=== PATIENT | female | born 1970 | race Caucasian/White ===

== ENCOUNTER 2019-06-05 17:54 | Observation (INO) | payer SELFPAY ==
[2019-06-05] VITALS (8 sets, daily range): BP systolic 124–133; BP diastolic 76–92; PULSE 81–110; RESP 16–18; TEMP 36.5; O2SAT 94–98; BMI 32.3
[2019-06-05 18:55] LABS: Basophils % 0.3 %; Eosinophils # 0.1 10^3/uL (0.0-0.8); Eosinophils % 0.7 %; Hematocrit 45.5 % (37.0-47.0); Hemoglobin 15.1 g/dL (11.5-15.3); Lymphocytes # 1.5 10^3/uL (0.8-4.8); Lymphocytes % 12.2 %; Mean Corpuscular HGB Conc 33.2 g/dL (30.0-36.0); Mean Corpuscular Hemoglobin 27.3 pg (28.0-34.0); Mean Corpuscular Volume 82.3 fL (81-99); Mean Platelet Volume 8.9 fL (7.4-10.4); Monocytes # 0.5 10^3/uL (0.2-0.9); Monocytes % 3.8 %; Neutrophils % 82.7 %; Nucleated Red Blood Cells % 0 %; Platelet Count 407 10^3/cmm (130-400); Red Blood Count 5.53 10^6/uL (4.1-5.3); Red Cell Distribution Width 12.3 % (12.1-15.1); White Blood Count 12.1 10^3/uL (4.0-10.0)
--- NOTE | 2019-06-05 19:01 | CTR_ITS ---
PROCEDURE INFORMATION: Exam: CT Abdomen And Pelvis Without Contrast Exam date and time: 06/05/2019 7:14 PM Age: 48 years old Clinical indication: Abdominal pain; Flank; Right; Prior surgery; Surgery date: 6+ months; Surgery type: Appy; Additional info: Flank/abdominal pain TECHNIQUE: Imaging protocol: Computed tomography of the abdomen and pelvis without contrast. Total DLP: 1091.95 mGy-cm Radiation optimization: All CT scans at this facility use at least one of these dose optimization techniques: automated exposure control; mA and/or kV adjustment per patient size (includes targeted exams where dose is matched to clinical indication); or iterative reconstruction. COMPARISON: No relevant prior studies available. FINDINGS: Liver: Normal. No mass. Gallbladder and bile ducts: Multiple nonobstructing calculi in the gallbladder. Pancreas: Normal. No ductal dilation. Spleen: Normal. No splenomegaly. Adrenals: Normal. No mass. Kidneys and ureters: Moderate right obstructive uropathy is due to a 6 x 4 x 6 mm calculus in the distal ureter located within 2 cm of the urinary bladder. Several additional right intrarenal calculi up to 5 mm. Single small nonobstructing left intrarenal calculus. Stomach and bowel: Unremarkable. No obstruction. No mucosal thickening. Appendix: No evidence of appendicitis. Intraperitoneal space: Unremarkable. No free air. No significant fluid collection. Vasculature: Unremarkable. No abdominal aortic aneurysm. Lymph nodes: Unremarkable. No enlarged lymph nodes. Bladder: Unremarkable as visualized. Reproductive: Unremarkable as visualized. Bones/joints: Unremarkable. No acute fracture. Soft tissues: Unremarkable. CT/CT kidney stone [id number] IMPRESSION: 1. Right obstructive uropathy due to a 6 mm distal ureteral calculus. 2. Additional bilateral nonobstructing intrarenal stones. 3. Nonobstructing gallstones. Radiation Dose CTDIVOL = (mGy): DLP = 1091.95 (mGy-cm)
[2019-06-05 19:04] LABS: Alanine Aminotransferase 25 U/L (0-33); Albumin Level 4.7 g/dL (3.5-5.2); Alkaline Phosphatase 90 IU/L (35-105); Anion Gap 17.1 (5-19); Aspartate Amino Transferase 26 U/L (0-32); Blood Urea Nitrogen 19 mg/dL (6-20); Calcium 10.6 mg/dL (8.5-10.5); Carbon Dioxide 26 mmol/L (22-29); Chloride 99 mmol/L (98-107); Globulin 3.9 g/dL (1.3-4.6); Glomerular Filtration Rate 58.9 mL/min (90-130); Glucose 179 mg/dL (65-115); Lipase 14 U/L (13-60); Potassium 4.1 mmol/L (3.5-5.1); Sodium 138 mmol/L (136-145); Total Bilirubin 0.5 mg/dL (0.15-1.2); Total Protein 8.6 g/dL (6.6-8.7)
--- NOTE | 2019-06-05 19:06 | ED_ITS ---
Entered by Maye Urbina, acting as scribe for Nisha Andino Tal Jun 05, 2019 17:54 HPI - Abdominal Pain General: Chief Complaint: Abdominal Pain Stated Complaint: abd pain Time Seen by Provider: 06/05/19 18:58 Source: patient Mode of arrival: ambulatory Limitations: no limitations History of Present Illness: HPI narrative: 48 yo f came to the er pov for abd pain. Onset was this morning at 9am. Pt states that she has been having some lower abd pain and some nausea as well. Pt states that she cannot sit or lay down due to the pain. MD elicited complaint: abdominal pain Pertinent past history: none Onset (ago): day(s) (this morning) Pain Consistency: constant Location: RLQ Severity: moderate Quality: sharp Radiation: none Migration to: no migration Exacerbating factors: nothing Relieving factors: nothing Associated Symptoms: Reports nausea; Denies chills, dysuria, fever(s), hematuria and syncope Related Data: Date of Last Menstrual Period: 04/11/19 Patient : No Review of Systems General: Reports: other (negative unless marked) Const: Denies: fever, chills, body aches, fatigue, malaise or diaphoresis Eyes: Denies: change in vision or blurry vision ENMT: Denies: throat pain, painful swallowing, hoarseness, ear pain, ear discharge, Change in hearing or nasal discharge Card: Denies: chest pain, palpitations, irregular heart rhythm, syncope, pre- syncope, shortness of breath on exertion or shortness of breath when lying down Resp: Denies: shortness of breath, productive cough, non-productive cough, wh eezing, coughing up blood or chest congestion GI: Reports: abdominal pain and nausea : Reports: flank pain; Denies: painful urination, urinary frequency, urinary urgency, decreased urine ouput, urinary incontinence or blood in urine Musc: Denies: neck pain, back pain, extremity pain, extremity swelling, joint pain, joint swelling, joint warmth or joint stiffness Skin/Breast: Denies: rash, skin tenderness or yellow skin Neuro: Denies: headache, numbness in extremities, weakness in extremities, c hanges in sensation, lack of coordination, difficulty walking, dizziness, vertigo or confusion Endo: Denies: excessive thirst, tired all the time, cold intolerance, excessive sweating, flushing or hot flashes Emerson/Lymph: Denies: easy bruising, easy bleeding, petechiae or enlarged lymph nodes All/Imm: Denies: hives, throat swelling, tongue swelling, facial swelling or acute wheezing PFSH ED PFSH: Statuses (acute, chronic, etc) shown below reflect problem list status as previously entered and may not be historically accurate Medical History Obesity (Acute) Social History Smoking and tobacco status: former smoker Female Reproductive History: Date of last menstrual period: 04/11/19 Physical Exam Const: COMMON NORMALS: no apparent distress, oriented x3, no limitations, he althy appearing and well nourished EXAM LIMITATIONS: no altered mental status GENERAL APPEARANCE: cooperative, well kempt and well developed ORIENTATION/CONSCIOUSNESS: Yes awake HENMT: COMMON NORMALS: normocephalic, head/scalp atraumatic, hearing grossly normal bilaterally, external ears normal, EAC's normal, external nose normal and moist oral mucous membranes HEAD & SCALP: normal to inspection, normocephalic and atraumatic FACE & SINUS: normal facial exam and face symmetric NOSE: external nose normal and nares normal EXTERNAL EAR: Yes external ears normal EXTERNAL AUDITORY CANAL: EAC's normal MOUTH: oral and palatal mucosa normal and tongue normal Eye: COMMON NORMALS: PERRL, EOMs intact bilaterally, conjunctivae normal and no scleral icterus GENERAL EYE: normal appearance of both eyes and normal light reflex CONJUNCTIVA: Yes conjunctivae normal SCLERA: sclerae normal CORNEA: Yes corneas normal PUPIL: Yes PERRL DIRECT OPHTHALMOSCOPY: Yes normal light reflex Neck/C-Spine: COMMON NORMALS: full ROM, no lymphadenopathy, supple, no meningeal signs and no JVD GENERAL: Yes normal visual inspection and Yes trachea midline CERVICAL SPINE: Yes cervical ROM normal Chest: COMMONS NORMALS: inspection of chest normal and palpation of chest normal Resp: COMMON NORMALS: normal respiratory effort, no retractions, no use of accessory muscles and clear to auscultation bilaterally EFFORT & INSPECTION: Yes able to speak in complete sentences AUSCULTATION: clear to auscultation bilaterally Cardio: COMMON NORMALS: no JVD, regular rate, regular rhythm, S1 normal heart sound, S2 normal heart sound, no gallops, no clicks, no murmurs and no rub JUGULAR VENOUS DISTENTION: no JVD RATE: regular rate RHYTHM: regular rhythm HEART SOUNDS: S1 normal and S2 normal GI: COMMON NORMALS: soft to palpation, non-tender, no hepatosplenomegaly and no masses INSPECTION: Yes normal to inspection PALPATION: Yes soft and Yes no hepatosplenomegaly : BLADDER/KIDNEY EXAM: Yes CVA tenderness on the right Back/Pelvis: COMMON NORMALS: thoracic and lumbar spine normal to inspection, no thoracic nor lumbar tenderness and thoraco-lumbar ROM normal GENERAL BACK: Yes CVA tenderness Extremity: COMMON NORMALS: normal to inspection, full ROM, normal capillary refill, no joint enlargement, no clubbing, cyanosis or edema and no calf tenderness Neuro: COMMON NORMALS: oriented x3, CN's II-XII intact bilaterally, moves all extremities, no focal motor deficits and no sensory deficits noted MENINGEAL SIGNS: Yes no meningeal signs Psych: COMMON NORMALS: mental status grossly normal, thought process normal, cooperative, affect normal, speech normal and activity/motor behavior normal APPEARANCE: Yes well kempt SPEECH: Yes normal speech THOUGHT PROCESS: normal thought process Skin: COMMON NORMALS: no rashes or lesions noted, skin turgor normal, no j aundice, no petechiae and no mottling GENERAL SKIN EXAM: no rashes or lesions noted and turgor normal Course Vital Signs: Vital signs: Vital Signs Temperature 97.7 F 06/05/19 18:25 Pulse Rate 110 H 06/05/19 18:25 Respiratory Rate 18 06/05/19 19:48 Blood Pressure 133/92 06/05/19 18:25 Pulse Oximetry 98 06/05/19 19:48 MDM - Abdominal Pain MDM Narrative: Medical decision making narrative: Kathi is a 48-year-old female who comes in with right flank pain. He is not had any fever, diarrhea, or vomiting. CT scan shows no sign of AAA but does show a large renal stone. The patient's been given multiple doses of pain medication but still has pain. She feels very nauseated as well. Do not believe she is going to be able to go home with this. I reviewed the case in full with Dr. Milner and he is agreeable to admission for intractable pain. Lab Data: Labs: Lab Results 06/05/19 06/05/19 06/05/19 Range/Units 18:40 18:40 18:50 WBC 12.1 H (4.0-10.0) 10^3/ uL RBC 5.53 H (4.1-5.3) 10^6/u L Hgb 15.1 (11.5-15.3) g/dL Hct 45.5 (37.0-47.0) % MCV 82.3 (81-99) fL MCH 27.3 L (28.0-34.0) pg MCHC 33.2 (30.0-36.0) g/dL RDW 12.3 (12.1-15.1) % Plt Count 407 H (130-400) 10^3/c mm MPV 8.9 (7.4-10.4) fL Neut % (Auto) 82.7 % Lymph % (Auto) 12.2 % Billings % (Auto) 3.8 % Eos % (Auto) 0.7 % Baso % (Auto) 0.3 % Neut # (Auto) 10.0 H (1.8-7.7) 10^3/u L Lymph # (Auto) 1.5 (0.8-4.8) 10^3/u L Billings # (Auto) 0.5 (0.2-0.9) 10^3/u L Eos # (Auto) 0.1 (0.0-0.8) 10^3/u L Baso # (Auto) 0.0 (0.0-0.1) 10^3/u L Nucleated RBC % (a uto) 0 % Nucleated RBCs # 0.0 /100WBC Sodium 138 (136-145) mmol/L Potassium 4.1 (3.5-5.1) mmol/L Chloride 99 (98-107) mmol/L Carbon Dioxide 26 (22-29) mmol/L Anion Gap 17.1 (5-19) BUN 19 (6-20) mg/dL Creatinine 1.0 H (0.5-0.9) mg/dL GFR Calculation 58.9 L (90-130) mL/min Glucose 179 H (65-115) mg/dL Calcium 10.6 H (8.5-10.5) mg/dL Total Bilirubin 0.5 (0.15-1.2) mg/dL AST 26 (0-32) U/L ALT 25 (0-33) U/L Alkaline Phosphata se 90 (35-105) IU/L Total Protein 8.6 (6.6-8.7) g/dL Albumin 4.7 (3.5-5.2) g/dL Globulin 3.9 (1.3-4.6) g/dL Lipase 14 (13-60) U/L Urine Color Yellow (Yellow) Urine Appearance Hazy A (CLEAR) Urine pH 7 (5-7) Ur Specific Gravit y 1.010 (1.005-1.030) Urine Protein Neg (Negative) Urine Glucose (UA) Norm (Normal) Urine Ketones 1+ H (Negative) Urine Occult Blood 3+ H (Negative) Urine Nitrate Negative (Negative) Urine Bilirubin Neg (NEGATIVE) Urine Urobilinogen Norm (Negative) mg/dL Ur Leukocyte Medina ase Negative (Negative) Urine RBC >100 H (0-2) /hpf Urine WBC 0-4 H (0-5) /hpf Ur Squamous Epith Cells 0-4 H (0-5) Urine Bacteria 1+ H (NONE) Urine Mucus 1+ Imaging Data ^: CT Abd/Pel: Radiologist's impression: [place] [address] CT Scan Report Signed Patient: Catrina Mcmanus Unit #: [id number] : 1970 Age/Sex: 48 / F ADM Date: 06/05/19 Loc: ER Room/Bed: Attending Dr: Ordering Provider/Ordering MD: Nisha Andino DO Date of Service: 06/05/19 Procedure(s): CT kidney stone [id number] Accession Number(s): [id number] Report Number: [id number] PROCEDURE INFORMATION: Exam: CT Abdomen And Pelvis Without Contrast Exam date and time: 06/05/2019 7:14 PM Age: 48 years old Clinical indication: Abdominal pain; Flank; Right; Prior surgery; Surgery date: 6+ months; Surgery type: Appy; Additional info: Flank/abdominal pain TECHNIQUE: Imaging protocol: Computed tomography of the abdomen and pelvis without contrast. Total DLP: 1091.95 mGy-cm Radiation optimization: All CT scans at this facility use at least one of these dose optimization techniques: automated exposure control; mA and/or kV adjustment per patient size (includes targeted exams where dose is matched to clinical indication); or iterative reconstruction. COMPARISON: No relevant prior studies available. FINDINGS: Liver: Normal. No mass. Gallbladder and bile ducts: Multiple nonobstructing calculi in the gallbladder. Pancreas: Normal. No ductal dilation. Spleen: Normal. No splenomegaly. Adrenals: Normal. No mass. Kidneys and ureters: Moderate right obstructive uropathy is due to a 6 x 4 x 6 mm calculus in the distal ureter located within 2 cm of the urinary bladder. Several additional right intrarenal calculi up to 5 mm. Single small nonobstructing left intrarenal calculus. Stomach and bowel: Unremarkable. No obstruction. No mucosal thickening. Appendix: No evidence of appendicitis. Intraperitoneal space: Unremarkable. No free air. No significant fluid collection. Vasculature: Unremarkable. No abdominal aortic aneurysm. Lymph nodes: Unremarkable. No enlarged lymph nodes. Bladder: Unremarkable as visualized. Reproductive: Unremarkable as visualized. Bones/joints: Unremarkable. No acute fracture. Soft tissues: Unremarkable. CT/CT kidney stone [id number] IMPRESSION: 1. Right obstructive uropathy due to a 6 mm distal ureteral calculus. 2. Additional bilateral nonobstructing intrarenal stones. 3. Nonobstructing gallstones. 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
[2019-06-05] MEDS: sodium chloride 0.9% 1,000 ML 100 ML IV ×2 (19:08)
[2019-06-05] MEDS: ondansetron 2 mg/ML SDV 2 mL 4 MG IVP ×2 (19:12→19:34)
[2019-06-05] MEDS: morphine 4 mg/mL SDV 1 mL IVP ×2 (19:13→19:37)
[2019-06-05 19:28] LABS: Add Urine Microscopic? YES; Bilirubin Urine Neg (NEGATIVE); Blood Urine 3+ (Negative); Glucose Urine UA Norm (Normal); Ketones Urine 1+ (Negative); Leukocyte Esterase Urine Negative (Negative); Nitrate Urine Negative (Negative); Protein Urine Neg (Negative); Urine Appearance Hazy (CLEAR); Urine Color Yellow (Yellow); Urobilinogen Urine Norm (Negative); pH Urine 7 (5-7)
[2019-06-05 19:39] LABS: Add Urine Culture? Yes; Bacteria Urine 1+; Mucus Urine 1+; RBC Urine >100 /hpf (0-2); Squamous Epithelial Cell Urine 0-4 (0-5); WBC Urine 0-4 /hpf (0-5)
[2019-06-05] MEDS: HYDROmorphone 1 mg/mL INJ 1 mL IVP (19:48)
[2019-06-05] MEDS: ketorolac 30 mg/mL INJ 15 MG IVP (20:57)
[2019-06-06] VITALS (14 sets, daily range): BP systolic 98–130; BP diastolic 49–79; PULSE 60–81; RESP 12–20; TEMP 35.9–36.7; O2SAT 96–100
--- NOTE | 2019-06-06 | XR_ITS ---
WS: [id number] KUB, 2 C-arm fluoroscopy views in the OR, 06/06/2019 Clinical Data: OR PICS Comparison: KUB, 06/06/2019 Findings: A ureteral catheter has been placed and the proximal portion is curled and probably within the right renal pelvis. XR/XR KUB [id number] Impression: Placement of right ureteral catheter with its proximal portion in the right abelino al pelvis.
--- NOTE | 2019-06-06 | SCC_ITS ---
Procedure Done: Cystoscopy, RIGHT: Retrograde, ureteroscopy, laser, stent 29.4 seconds of fluoroscopic guidance, for a cumulative dose of 6.46 mGy, was provided to Dr. Milner by the radiology department. C-arm images of the abdomen were saved for the patient's permanent record. [facility]
[2019-06-06] MEDS: ondansetron 2 mg/ML SDV 2 mL 4 MG IVP ×4 (01:46→18:48)
[2019-06-06] MEDS: morphine 4 mg/mL SDV 1 mL IVP ×3 (01:47→14:00)
[2019-06-06] MEDS: ketorolac 30 mg/mL INJ 15 MG IVP ×3 (03:35→18:27)
--- NOTE | 2019-06-06 06:00 | XR_ITS ---
WS: [id number] KUB, 06/06/2019 Clinical Data: URETEROLITH ASIS Comparison: CT abdomen and pelvis, 06/05/2019 Findings: There is a calcification which probably represents a distal right ureteral stone on the right side of the true pelvis. There are multiple small calcifications overlying the right kidney. The left kidney s obscured by overlying bowel gas. There are phleboliths also in the true pelvis. XR/XR KUB [id number] Impression: 1. Probable distal right ureteral calculus unchanged. 2. Multiple calcifications overlying the right kidney.
--- NOTE | 2019-06-06 06:05 | PM.HP ---
Providers/Chief Complaint Admitting Physician: Oscar Milner MD Primary Care Provider: Robert Colorado MD Chief Complaint: URETEROLITHASIS, INTRACTABLE PAIN History of Present Illness Catrina Mcmanus is a 48 year old female who presented to ED yesterday with abrupt onset of Right flank to RLQ severe, colicky pain, nausea and vomitting that began that morning. No fever, chills, change in bowel habits. Workup: UA: microhematuria, no infection Lab: Cr: 1.0, WBC: 12.x CT: RIGHT hydroureteronephrosis secondary to 6mm stone 2cm above UVJ. BILATERAL RENAL CALCULI also. Unsuccessful in achieving pain control adequate for discharge home and therefore admitted for symptom control and further treatment as indicated. Additional information: She has had intermittent right flank pain when she drinks soda over the last many months. I expect that that probably supports the chronic obstructive changes. Essentially she is failed a conservative therapy prior to presenting with acute renal colic. No family history of stone After detailed discussion of her findings benefits risks of approaches including conservative outpatient versus inpatient management, surgical intervention with endoscopy recommended based on the size of the stone we chose to proceed today with cystoscopy, RIGHT: Ureteroscopy, laser, stent. We will place her on the schedule as time is available this afternoon. Benefits risk potential complications alternatives, and then 5 to 10% for inability to access the stone safely with the scope leading to a 2 staged approach with stenting first followed by ureteroscopy laser lithotripsy after passive dilation as well as a less than 1% chance of failure to bypass the stone entirely requiring interventional radiology percutaneous nephrostomy tube placement was reviewed. Informed consent was obtained. Review of Systems Const: Denies: fever or chills Eyes: Denies: change in vision ENMT: Denies: painful swallowing or hoarseness Card: Denies: chest pain or palpitations Resp: Denies: shortness of breath, productive cough or wheezing GI: Reports: abdominal pain and nausea : Reports: flank pain, difficulty urinating and urinary urgency Musc: Denies: joint swelling or muscle weakness Skin/Breast: Denies: rash or redness Neuro: Reports: headache and numbness in extremities Psych: Denies: anxiety or depression Endo: Denies: hot flashes Emerson/Lymph: Denies: easy bruising or easy bleeding All/Imm: Denies: hives Medications/Allergies Allergies Allergy/AdvReac Type Severity Reaction Status Date / Time Penicillins Allergy ALGY-Hives Verified 06/05/19 18:31 PFSH Acute PFSH: Statuses (acute, chronic, etc) shown below reflect problem list status as previously entered and may not be historically accurate Medical History Bilateral renal stones (Acute) Obesity (Acute) Surgical History Hx of removal of ovary (Acute) Social History (Updated 06/06/19 @ 08:03 by Oscar Milner MD) Smoking and tobacco status: former smoker Marital status: Female Reproductive History: Date of last menstrual period: 04/11/19 Vitals/I&O/Wt Last Vital Signs Temp 97.6 F 06/06/19 00:00 Pulse 60 06/06/19 00:00 Resp 17 06/06/19 01:47 BP 125/78 06/06/19 00:00 Pulse Ox 96 06/06/19 00:00 06/05/19 06/05/19 06/06/19 14:59 22:59 06:59 Intake Total 1220 / 1220 Output Total 50 / 50 Balance 1170 / 1170 Weight last 48 hrs Weight 171 lb Physical Exam Const: COMMON NORMALS: no apparent distress, alert and well nourished GENERAL APPEARANCE: well kempt and well developed ORIENTATION/CONSCIOUSNESS: not confused HENMT: COMMON NORMALS: normocephalic and head/scalp atraumatic HEAD & SCALP: normocephalic and atraumatic Eye: COMMON NORMALS: conjunctivae normal and no scleral icterus CONJUNCTIVA: Yes conjunctivae normal Neck/C-Spine: COMMON NORMALS: full ROM GENERAL: Yes normal visual inspection Lymph: LYMPHATIC: no lymphadenopathy noted and no lymphedema noted Resp: COMMON NORMALS: normal respiratory effort EFFORT & INSPECTION: No labored and No actively coughing AUSCULTATION: clear to auscultation bilaterally Cardio: COMMON NORMALS: regular rate, regular rhythm and no murmurs RATE: regular rate RHYTHM: regular rhythm BRUITS: no carotid bruits Extremity: COMMON NORMALS: no clubbing, cyanosis or edema Neuro: COMMON NORMALS: no focal motor deficits SENSORIUM/ORIENTATION: Yes alert Psych: COMMON NORMALS: mental status grossly normal APPEARANCE: Yes grossly normal and Yes well kempt ATTITUDE: Yes calm and Yes engaged Skin: COMMON NORMALS: no rashes or lesions noted and no jaundice GENERAL SKIN EXAM: no rashes or lesions noted Data : 06/05/19 18:40 06/05/19 18:40 A&P Assessment and plan (1) Intractable pain: Secondary to large right distal ureteral stone with evidence of chronic obstruction. Status: Acute Code(s): R52 - Pain, unspecified (2) Ureterolithiasis: 6+ millimeters right distal ureteral stone with chronic obstruction. Refractory pain Status: Acute Code(s): N20.1 - Calculus of ureter (3) Bilateral renal stones: Multi stone former. Unaware of this prior to admission June 2023 symptomatic right distal ureteral stone Status: Acute Code(s): N20.0 - Calculus of kidney Attestations Medical Necessity Statement*: Could not control pain adequately in order to continue outpatient management. Stone is been obstructing for extended period time based on the degree of hydroureteronephrosis. We will take her to surgery this afternoon to treat the stone. 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
[2019-06-06] MEDS: sodium chloride 0.9% 1,000 ML 100 ML IV (08:08)
[2019-06-06 09:31] LABS: Basophils % 0.3 %; Eosinophils # 0.2 10^3/uL (0.0-0.8); Eosinophils % 1.6 %; Hematocrit 38.2 % (37.0-47.0); Hemoglobin 12.7 g/dL (11.5-15.3); Lymphocytes # 2.2 10^3/uL (0.8-4.8); Lymphocytes % 22.4 %; Mean Corpuscular HGB Conc 33.2 g/dL (30.0-36.0); Mean Corpuscular Hemoglobin 28.3 pg (28.0-34.0); Mean Corpuscular Volume 85.3 fL (81-99); Mean Platelet Volume 9.2 fL (7.4-10.4); Monocytes # 0.6 10^3/uL (0.2-0.9); Monocytes % 6.4 %; Neutrophils # 6.8 10^3/uL (1.8-7.7); Nucleated Red Blood Cells % 0 %; Platelet Count 284 10^3/cmm (130-400); Red Blood Count 4.48 10^6/uL (4.1-5.3); Red Cell Distribution Width 12.4 % (12.1-15.1); White Blood Count 9.8 10^3/uL (4.0-10.0)
[2019-06-06 09:54] LABS: Anion Gap 13.9 (5-19); Blood Urea Nitrogen 17 mg/dL (6-20); Calcium 9.4 mg/dL (8.5-10.5); Carbon Dioxide 22 mmol/L (22-29); Chloride 106 mmol/L (98-107); Glomerular Filtration Rate 66.5 mL/min (90-130); Glucose 101 mg/dL (65-115); Osmolality Calculated 283 mOsm/kg (285-295); Potassium 3.9 mmol/L (3.5-5.1); Sodium 138 mmol/L (136-145)
--- NOTE | 2019-06-06 12:10 | PC.CHAP ---
Pastoral Care Encounter/Spiritual Assessment Type of Contact [x] Declined order analyst visit [] Patient/Family/Request visit [] Outpatient visit [] Follow-up visit [] Physician referral [] Code/Alert [] Routine visit [] Staff referral [] Actively dying [] Patient sleeping [] Family support [] [] Out of room [] Palliative care [] [] Receiving care in room [] Pre-surgical visit [] Trauma [] Long length of stay [] ICU visit [] Other: Relational/Emotional Strength [] Patient feels connected with others/family/visitors/staff [] Distress [] Loneliness/isolation [] Abandonment Spirituality of Patient [] Person of Sujata [] Attends Advent of their Sujata [] Believes in Prayer [] Reads Bible or Jainism materials [] There are Spiritual issues to be addressed [employer] Interventions [] Prayer [] Active listening [] Non-anxious presence [] Spiritual/emotional support [] Crisis/trauma care [] Spiritual counseling [] Bereavement support [] Provided bereavement packet [] Provided Bible/devotional materials [] Provided toy/stuffed animal, coloring book to patient or family member [] Provided Communion [] Anointing/[place] [] Salvation [] Completed spiritual assessment [] Other: Impact on Illness or Injury [] Angry [] Fearful [] Anxious [] Often cries [] Exhaustion [] Unable to work [] Unable to attend sikhism [] Unable to walk/stand [] Unable to read [] Unable to drive [] Unable to eat/drink [] Unable to sleep [] Unable to be with family [] Patient intubated [] Other: Summary Time spent with patient
--- NOTE | 2019-06-06 14:48 | ANES.PREANE2 ---
Pre-Anesthetic Assessment Pre-Anesthetic Assessment: Height/Weight: Height 1.55 m Weight 77.564 kg Temp Pulse Resp BP Pulse Ox 98.1 F 69 18 98/60 98 06/06/19 10:58 06/06/19 10:58 06/06/19 14:00 06/06/19 10:58 06/06/19 10:58 Proposed Procedure: Operation Date: 06/06/19 15:15 Proposed Procedures p Cystoscopy(Not Applicable) - Oscar Milner MD s Laser Lithotripsy(Right) - Oscar Milner MD s Retrograde Pyelogram(Right) - Oscar Milner MD s Flexible Ureteroscopy(Right) - Oscar Milner MD s Ureteral Stent Placement(Right) - Oscar Milner MD Familial anesthetic complications: Difficult epidural - legs seize up Was Beta Ronaldo taken within 24 hours: N/A Last intake: Intake Last Liquid Date 06/06/19 Last Liquid Time 08:30 Last Solid Date 06/05/19 Last Solid Time 15:00 Social: Social History: No alcohol and No tobacco Exam: Pre-Anes Outpt Exam: alert, oriented x 3, clear to auscultation bilaterally and regular rate & rhythm Airway: Cervical ROM: WNL MP: 2 Dentition: Full Pulmonary: Pulmonary: None reported CV/HEM: CV/HEM: None reported : : None reported Hepatic: Hepatic: None reported GI: GI: None reported Metabolic: Metabolic: None reported Musc/skel: Musc/skel: None reported Neuropsych: Neuropsych: None reported Anesthetic Plan: ASA status: 2 Anesthesia: General Meds/Allergies Current Medications: Current Medications Generic Name Dose Route Start Last Admin Trade Name Yoanq PRN Reason Stop Dose Admin Sodium Chloride 1,000 mls @ 100 m ls/hr 06/05/19 23:05 06/06/19 08:08 Sodium Chloride 0.9% IV 100 mls/hr .Q10H RUDDY Administration Ketorolac Trometha mine 15 mg 06/05/19 20:22 06/06/19 09:39 Toradol IVP 06/10/19 20:21 15 mg Q6H PRN Administration MODERATE PAIN Morphine Sulfate 4 mg 06/05/19 19:22 06/06/19 14:00 Morphine IVP 4 mg ONCE PRN Administration SEVERE PAIN Ondansetron HCl 4 mg 06/05/19 23:05 06/06/19 14:01 Zofran IVP 4 mg Q6H PRN Administration NAUSEA AND VOMITI NG PFSH Anesthesia PFSH: Medical History Bilateral renal stones (Acute) Obesity (Acute) Surgical History Hx of removal of ovary (Acute) Social History (Updated 06/06/19 @ 08:03 by Oscar Milner MD) Smoking and tobacco status: former smoker Marital status: Female Reproductive History: Date of last menstrual period: 04/11/19 Data Anesthesia CBC & Chem 7: 06/06/19 08:54 06/06/19 08:54 Other Labs: Laboratory Results - last 48 hr 06/05/19 06/05/19 06/05/19 18:40 18:40 18:50 WBC 12.1 H RBC 5.53 H Hgb 15.1 Hct 45.5 MCV 82.3 MCH 27.3 L MCHC 33.2 RDW 12.3 Plt Count 407 H MPV 8.9 Neut % (Auto) 82.7 Lymph % (Auto) 12.2 [place] % (Auto) 3.8 Eos % (Auto) 0.7 Baso % (Auto) 0.3 Neut # (Auto) 10.0 H Lymph # (Auto) 1.5 [place] # (Auto) 0.5 Eos # (Auto) 0.1 Baso # (Auto) 0.0 Nucleated RBC % (auto) 0 Nucleated RBCs # 0.0 Sodium 138 Potassium 4.1 Chloride 99 Carbon Dioxide 26 Anion Gap 17.1 BUN 19 Creatinine 1.0 H GFR Calculation 58.9 L Glucose 179 H Calculated Osmolality Calcium 10.6 H Total Bilirubin 0.5 AST 26 ALT 25 Alkaline Phosphatase 90 Total Protein 8.6 Albumin 4.7 Globulin 3.9 Lipase 14 Urine Color Yellow Urine Appearance Hazy A Urine pH 7 Ur Specific Pride 1.010 Urine Protein Neg Urine Glucose (UA) Norm Urine Ketones 1+ H Urine Occult Blood 3+ H Urine Nitrate Negative Urine Bilirubin Neg Urine Urobilinogen Norm Ur Leukocyte Esterase Negative Urine RBC >100 H Urine WBC 0-4 H Ur Squamous Epith Cells 0-4 H Urine Bacteria 1+ H Urine Mucus 1+ 06/06/19 06/06/19 08:54 08:54 WBC 9.8 RBC 4.48 Hgb 12.7 Hct 38.2 MCV 85.3 MCH 28.3 MCHC 33.2 RDW 12.4 Plt Count 284 MPV 9.2 Neut % (Auto) 69.0 Lymph % (Auto) 22.4 [place] % (Auto) 6.4 Eos % (Auto) 1.6 Baso % (Auto) 0.3 Neut # (Auto) 6.8 Lymph # (Auto) 2.2 [place] # (Auto) 0.6 Eos # (Auto) 0.2 Baso # (Auto) 0.0 Nucleated RBC % (auto) 0 Nucleated RBCs # 0.0 Sodium 138 Potassium 3.9 Chloride 106 Carbon Dioxide 22 Anion Gap 13.9 BUN 17 Creatinine 0.9 GFR Calculation 66.5 L Glucose 101 Calculated Osmolality 283 L Calcium 9.4 Total Bilirubin AST ALT Alkaline Phosphatase Total Protein Albumin Globulin Lipase Urine Color Urine Appearance Urine pH Ur Specific Pride Urine Protein Urine Glucose (UA) Urine Ketones Urine Occult Blood Urine Nitrate Urine Bilirubin Urine Urobilinogen Ur Leukocyte Esterase Urine RBC Urine WBC Ur Squamous Epith Cells Urine Bacteria Urine Mucus Cardiac Studies: No Data to Display
[2019-06-06] MEDS: sodium chloride 0.9% 1,000 ML 30 ML IV (16:13)
[2019-06-06 16:16] LABS: HCG Qualitative Urine. Negative (Negative)
[2019-06-06] MEDS: levofloxacin-dextrose 5 % 500 MG/100 ML PREMIX 100 MG IV (16:29)
--- NOTE | 2019-06-06 16:33 | PM.OP ---
Operative Report Date of procedure: June 06, 2019 Pre-op Diagnosis: Right distal ureteral stone with longstanding high-grade obstruction Post-op diagnosis: same Procedure Done: Cystoscopy, RIGHT: Retrograde, ureteroscopy, laser, stent Implants: Ureteral stent Pathology: other Pathology: Stone fragments Anesthesia: General Estimated blood loss: Minimal Urine output: Not measured Findings: Large stone in the right distal ureter in position as expected. Condition: stable Disposition: PACU Brief History: Mrs. Mcmanus is a very pleasant 48-year-old white female who was admitted to my service last night for refractory right renal colic related to a chronically obstructing right distal ureteral stone measuring 6 mm by approximately 1 centimeter. Was requiring regular parenteral narcotics to control the pain. No evidence of infection but due to the chronic nature of hydronephrosis severe pain and the likelihood that she would not pass the stone after an extended period it was decided to proceed with treatment and she chose endoscopy. See H&P for full details. Procedure: After routine preoperative evaluation examination and obtaining of informed consent she was taken to the operating suite on 06/06/2019 where general anesthesia was administered without difficulty after appropriate timeout was performed, SCDs confirmed to be functioning, preoperative antibiotics administered, beta-keny protocol confirmed. Prepped and draped in the usual sterile fashion in dorsal lithotomy position being careful attention to avoiding pressure points. 21 [place] cystoscope with 30 degree lens was introduced into the urethra meatus and advanced into the bladder and videoscopy. Bladder systematically examined and found to be within normal limits. The right ureteral orifice showed some edema. An 8 [place] cone-tip catheter was intubated into the right ureteral orifice for right retrograde ureteropyelogram demonstrating normal ureter course and caliber distal to the stone, filling defect consistent with a stone seen on previous imaging in the expected position, and hydroureter proximal to that point. Flexible guidewire was then passed beyond the stone up into the renal collecting system.
[2019-06-06] MEDS: iohexol 300 mg/mL 50 mL Btl (OR ONLY) XX (17:00)
--- NOTE | 2019-06-06 17:29 | P.DS_ITS ---
Discharge Providers Date of Admission: 06/05/19 20:21 Date of Discharge: Date of Discharge: June 06, 2019 Attending Provider at Admission: Oscar Milner MD Attending Provider at Discharge: Oscar Milner MD Primary Care Provider: Robert Colorado MD Diagnoses at Discharge Discharge Diagnosis (1) Intractable pain: Status: Resolved (2) Ureterolithiasis: Status: Resolved (3) Bilateral renal stones: Status: Chronic Problem details: Bilateral ureteral stones discovered on CT scan during work-up for right flank pain found to be secondary to large distal obstructing ureteral stone. Removed with endoscopy June 2019 Reason for Visit Reason for Visit: Reason For Visit: URETEROLITHASIS, INTRACTABLE PAIN Hospital Course Discharge Summary: Admitted on 06/05/2019 with refractory right renal colic secondary to a 6 x 10 mm right distal ureteral stone with chronic obstructive changes. Ultimately she chose to proceed with treatment. On the afternoon of 06/06/2019 she underwent a cystoscopy, right retrograde ureteropyelogram, right ureteroscopy with laser lithotripsy, stent placement (4.7 x 24 cm double-pigtail with string attached distally). There were no problems associated with the procedure. The ureter looked in good shape and therefore the string was left on the stent. After appropriate recovery she was discharged to home on the evening of 06/06/2011 in stable condition. Physical Exam Const: COMMON NORMALS: no apparent distress and oriented x3 EXAM LIMITATIONS: no altered mental status ORIENTATION/CONSCIOUSNESS: Yes awake and Yes oriented to place Resp: COMMON NORMALS: normal respiratory effort EFFORT & INSPECTION: No tachypneic and No respiratory distress Neuro: COMMON NORMALS: oriented x3 and no focal motor deficits SENSORIUM/ORIENTATION: Yes oriented to place Psych: COMMON NORMALS: mental status grossly normal and cooperative Discharge Data Data Completed and Pending: Completed Studies During Hospitalization Category Date Time Status CT kidney stone [id number] Urgent Cat Scan 06/05/19 19:01 Completed XR KUB [id number] Rout ine Exams 06/06/19 06:00 Completed Pending at discharge Category Date Time Status C-arm Fluoroscopy [id number] Routine Exams 06/06/19 16:06 Taken Urine Culture Sta t Lab 06/05/19 18:50 Received Labs from last 24 hours 06/06/19 06/06/19 06/05/19 08:54 08:54 18:50 WBC 9.8 RBC 4.48 Hgb 12.7 Hct 38.2 MCV 85.3 MCH 28.3 MCHC 33.2 RDW 12.4 Plt Count 284 MPV 9.2 Neut % (Auto) 69.0 Lymph % (Auto) 22.4 [place] % (Auto) 6.4 Eos % (Auto) 1.6 Baso % (Auto) 0.3 Neut # (Auto) 6.8 Lymph # (Auto) 2.2 [place] # (Auto) 0.6 Eos # (Auto) 0.2 Baso # (Auto) 0.0 Nucleated RBC % (a uto) 0 Nucleated RBCs # 0.0 Sodium 138 Potassium 3.9 Chloride 106 Carbon Dioxide 22 Anion Gap 13.9 BUN 17 Creatinine 0.9 GFR Calculation 66.5 L Glucose 101 Calculated Osmolal ity 283 L Calcium 9.4 Total Bilirubin AST ALT Alkaline Phosphata se Total Protein Albumin Globulin Lipase HCG, Qual Negative Urine Color Urine Appearance Urine pH Ur Specific Gravit y Urine Protein Urine Glucose (UA) Urine Ketones Urine Occult Blood Urine Nitrate Urine Bilirubin Urine Urobilinogen Ur Leukocyte [place] ase Urine RBC Urine WBC Ur Squamous Epith Cells Urine Bacteria Urine Mucus 06/05/19 06/05/19 06/05/19 18:50 18:40 18:40 WBC 12.1 H RBC 5.53 H Hgb 15.1 Hct 45.5 MCV 82.3 MCH 27.3 L MCHC 33.2 RDW 12.3 Plt Count 407 H MPV 8.9 Neut % (Auto) 82.7 Lymph % (Auto) 12.2 [place] % (Auto) 3.8 Eos % (Auto) 0.7 Baso % (Auto) 0.3 Neut # (Auto) 10.0 H Lymph # (Auto) 1.5 [place] # (Auto) 0.5 Eos # (Auto) 0.1 Baso # (Auto) 0.0 Nucleated RBC % (a uto) 0 Nucleated RBCs # 0.0 Sodium 138 Potassium 4.1 Chloride 99 Carbon Dioxide 26 Anion Gap 17.1 BUN 19 Creatinine 1.0 H GFR Calculation 58.9 L Glucose 179 H Calculated Osmolal ity Calcium 10.6 H Total Bilirubin 0.5 AST 26 ALT 25 Alkaline Phosphata se 90 Total Protein 8.6 Albumin 4.7 Globulin 3.9 Lipase 14 HCG, Qual Urine Color Yellow Urine Appearance Hazy A Urine pH 7 Ur Specific Gravit y 1.010 Urine Protein Neg Urine Glucose (UA) Norm Urine Ketones 1+ H Urine Occult Blood 3+ H Urine Nitrate Negative Urine Bilirubin Neg Urine Urobilinogen Norm Ur Leukocyte [place] ase Negative Urine RBC >100 H Urine WBC 0-4 H Ur Squamous Epith Cells 0-4 H Urine Bacteria 1+ H Urine Mucus 1+ Vitals: Last Vital Signs Temp 97.7 F 06/06/19 14:51 Pulse 67 06/06/19 14:51 Resp 18 06/06/19 14:51 BP 115/65 06/06/19 14:51 Pulse Ox 97 06/06/19 14:51 Discharge Plan Discharge Patient Disposition: Home, Self-Care Condition: Stable Prescriptions: [place] 5-325 mg tablet 1 tab PO Q12H Qty: 10 RF: 0 Continued phentermine 37.5 mg capsule 37.5 mg PO QDAY Qty: 30 RF: 0 Discharge Orders: Discharge Order (Routine); Ordered 06/06/19 Ordered By: Oscar Milner Referrals: Oscar Milner MD [Physician] - 4-7 days Robert Colorado MD [Primary Care Provider] - Discharge Diet: Usual diet Discharge Activity: Resume usual activity Activity Restrictions/Additional Instructions: 1. I left a ureteral stent indwelling and it will cause urgency frequency and sometimes right flank pain with urination. These are normal. 2. There is a string attached to the end of the stent which makes it easier to remove the stent. Please be careful not to pull it out prematurely. 3. I will need to see you back in follow-up to review stone risk reduction strategies and to remove the stent sometime next week. Discharge Attestations Time Spent in Discharge Care*: less than 30 min Quality Metrics Clinical Quality Measures During this hospital stay, did patient experience: None Coding Level of Care Code Acute [employer]aster for [facility] Fwd Diagnoses Intractable pain R52 Ureterolithiasis N20.1 Bilateral renal stones N20.0
[2019-06-07] VITALS: BP 120/75; PULSE 82; RESP 17; TEMP 36.8; O2SAT 96
[2019-06-07] MEDS: ketorolac 30 mg/mL INJ 15 MG IVP (00:45)
[2019-06-07 04:00] VITALS: BP 107/70; PULSE 53; RESP 20; TEMP 36.8; O2SAT 97
[2019-06-07 05:00] VITALS: BP 107/70; PULSE 53; RESP 20; TEMP 36.8; O2SAT 97
[2019-06-07 08:00] VITALS: BP 116/75; PULSE 58; RESP 16; TEMP 36.6; O2SAT 99
[2019-06-07 09:31] VITALS: PULSE 69; O2SAT 97
[2019-06-07 09:47] VITALS: PULSE 69; O2SAT 97
== END 2019-06-07 09:47 | disposition home or self-care (01) ==
LOC: ER 21:22 → MEDSURG 21:23
PROVIDERS: Anesthesiology; Emergency Medicine; Admitting Provider Urology; Emergency Provider Emergency Medicine; Family Provider Family Medicine; PCP Family Medicine; Visit Provider Urology
PROC: 0TJB8ZZ Inspection of Bladder, Via Natural or Artificial Opening Endoscopic (ICD-10-PCS; CPT 52000; principal; 2019-06-06 15:15)
PROC: (CPT 52356; 2019-06-06 15:15)
PROC: (CPT 74420; 2019-06-06 15:15)
PROC: 0TJ98ZZ Inspection of Ureter, Via Natural or Artificial Opening Endoscopic (ICD-10-PCS; CPT 52351; 2019-06-06 15:15)
PROC: (CPT 50605; 2019-06-06 15:15)
DX: N20.2 Calculus of kidney with calculus of ureter (principal); Z87.891 Personal history of nicotine dependence; E66.9 Obesity, unspecified; Z68.32 Body mass index [BMI] 32.0-32.9, adult
CPT/HCPCS: 52356; 12345; 36415; 74018; 74176; 76000; 80048; 80053; 81001; 81025; 82365; 83690; 85025; 87086; 88300; 96361; 96365; 96374; 96375; 96376; 99282; 99285; A9270; C1725; G0378; J1100; J1170; J1885; J1956; J2001; J2270; J2405; J2704; J3010; J7030

== ENCOUNTER 2019-06-14 07:44 | Outpatient (CLI) | payer SELFPAY ==
--- NOTE | 2019-06-14 07:58 | XR_ITS ---
WS: [id number] ABDOMEN: SUPINE FILM HISTORY: BILATERAL RENAL STONES COMPARISON: 06/06/2019 Normal bowel gas pattern. Surgical sutures are noted near the hepatic flexure. Right kidney: RIGHT ureteral stent remains in good position. The proximal pigtail is close to the mid line and may be an extrarenal pelvis. Similar to the prior study. 6 mm calcific density over the mid kidney. Left kidney: No renal or ureteral stone identified. XR/XR KUB [id number] IMPRESSION: 1. Interval placement of a RIGHT ureteral stent in good position. 2. No stones along the course of the ureteral stent. 3. RIGHT renal calcification 6 mm
== END 2019-06-14 07:45 | disposition home or self-care (01) ==
PROVIDERS: Family Provider Family Medicine; PCP Family Medicine; Visit Provider Urology
DX: N20.0 Calculus of kidney (principal)
CPT/HCPCS: 74018; 81001

== ENCOUNTER 2020-01-11 18:35 | Emergency (ER) | payer SELFPAY ==
[2020-01-11] VITALS (7 sets, daily range): BP systolic 124–142; BP diastolic 74–118; PULSE 60–88; RESP 18; TEMP 37.1; O2SAT 98–99; BMI 32.5
--- NOTE | 2020-01-11 19:09 | CTR_ITS ---
PROCEDURE INFORMATION: Exam: CT Abdomen And Pelvis Without Contrast Exam date and time: 01/11/2020 7:18 PM Age: 49 years old Clinical indication: Abdominal pain; Right; Prior surgery; Surgery date: 6+ months; Surgery type: Appy; Patient HX: C/O sudden onset R flank pain w HX of stones; Additional info: Left flank pain TECHNIQUE: Imaging protocol: Computed tomography of the abdomen and pelvis without contrast. Radiation optimization: All CT scans at this facility use at least one of these dose optimization techniques: automated exposure control; mA and/or kV adjustment per patient size (includes targeted exams where dose is matched to clinical indication); or iterative reconstruction. COMPARISON: CT kidney stone [id number] 06/05/2019 7:38 PM RADIATION DOSE METRICS: Total DLP (mGy-cm): 1334.77 FINDINGS: Liver: Normal. No mass. Gallbladder and bile ducts: Several gallstones are present in the gallbladder. No biliary ductal dilatation. Pancreas: Normal. No ductal dilation. Spleen: Normal. No splenomegaly. Adrenals: Normal. No mass. Kidneys and ureters: A 7 mm renal stone is present at the right UVJ. Moderate right hydronephrosis is noted. Tiny renal stones are seen in the inferior pole of the left kidney. Stomach and bowel: Unremarkable. No obstruction. No mucosal thickening. Appendix: The appendix has been removed. Intraperitoneal space: Unremarkable. No free air. No significant fluid collection. Vasculature: Unremarkable. No abdominal aortic aneurysm. Lymph nodes: Unremarkable. No enlarged lymph nodes. Bladder: Unremarkable as visualized. Reproductive: The uterus appears normal. A 3.8 cm left ovarian cyst is present. Bones/joints: Unremarkable. No acute fracture. Soft tissues: Unremarkable. CT/CT kidney stone [id number] IMPRESSION: 1. Right UVJ 7 mm renal stone and moderate right hydronephrosis. 2. Cholelithiasis. Is Radiation Dose CTDIVOL = (mGy): DLP = 1334.77 (mGy-cm)
[2020-01-11] MEDS: ondansetron 2 mg/ML SDV 2 mL 4 MG IVP (19:22)
[2020-01-11] MEDS: morphine 4 mg/mL SDV 1 mL IVP ×2 (19:22→23:27)
[2020-01-11] MEDS: HYDROmorphone 1 mg/mL INJ 1 mL 0.5 MG IVP ×2 (19:32→21:27)
[2020-01-11] MEDS: metoclopramide 5 mg/mL SDV 2 mL IVP (19:36)
[2020-01-11 19:54] LABS: Basophils # 0.1 10^3/uL (0.0-0.1); Basophils % 0.4 %; Eosinophils # 0.1 10^3/uL (0.0-0.8); Eosinophils % 0.5 %; Hematocrit 43.2 % (37.0-47.0); Hemoglobin 14.9 g/dL (11.5-15.3); Lymphocytes # 1.3 10^3/uL (0.8-4.8); Lymphocytes % 11.6 %; Mean Corpuscular HGB Conc 34.5 g/dL (30.0-36.0); Mean Corpuscular Hemoglobin 28.8 pg (28.0-34.0); Mean Corpuscular Volume 83.6 fL (81-99); Mean Platelet Volume 9.5 fL (7.4-10.4); Monocytes # 0.6 10^3/uL (0.2-0.9); Monocytes % 4.9 %; Neutrophils % 82.3 %; Nucleated Red Blood Cells % 0 %; Platelet Count 328 10^3/cmm (130-400); Red Blood Count 5.17 10^6/uL (4.1-5.3); Red Cell Distribution Width 12.7 % (12.1-15.1); White Blood Count 11.3 10^3/uL (4.0-10.0)
[2020-01-11 20:19] LABS: Alanine Aminotransferase 19 U/L (0-33); Albumin Level 4.8 g/dL (3.5-5.2); Alkaline Phosphatase 81 IU/L (35-105); Anion Gap 17.9 (5-19); Aspartate Amino Transferase 25 U/L (0-32); Blood Urea Nitrogen 22 mg/dL (6-20); Calcium 9.2 mg/dL (8.5-10.5); Carbon Dioxide 20 mmol/L (22-29); Chloride 100 mmol/L (98-107); Globulin 3.4 g/dL (1.3-4.6); Glomerular Filtration Rate 66.3 mL/min (90-130); Glucose 123 mg/dL (65-115); Osmolality Calculated 276 mOsm/kg (285-295); Potassium 3.9 mmol/L (3.5-5.1); Sodium 134 mmol/L (136-145); Total Bilirubin 0.5 mg/dL (0.15-1.2); Total Protein 8.2 g/dL (6.6-8.7)
--- NOTE | 2020-01-11 20:26 | ED_ITS ---
HPI - Abdominal Pain General: Chief Complaint: Abdominal Pain Stated Complaint: very painful kidney stones Time Seen by Provider: 01/11/20 19:04 History of Present Illness: HPI narrative: This patient is a 49-year-old female who presents today with flank pain. She thinks that she probably has a kidney stone. The pain started about 3 this afternoon and has been intractable. She had a stone about 6 months ago that had to be removed by Dr. Milner. She had a stent put in. The stone at that time was about 9 mm. She has not had another stone since then. With this episode she has been vomiting and having difficulty urinating. She is having sweats but no documented fever. MD elicited complaint: flank pain Pertinent past history: kidney stones Onset (ago): hour(s) (4) Associated Symptoms: Reports nausea and vomiting; Denies chills and fever(s) Related Data: Date of Last Menstrual Period: 04/11/19 Review of Systems General: Reports: 10 or more systems reviewed and unremarkable except in HPI and below Const: Denies: fever(s), chills, fatigue or malaise Eyes: Denies: change in vision ENMT: Denies: odynophagia Card: Denies: chest pain or swelling of feet/ankles Resp: Denies: dyspnea, productive cough or non-productive cough GI: Reports: abdominal pain, nausea and vomiting : Reports: flank pain and difficulty voiding Musc: Denies: neck pain or back pain Skin/Breast: Denies: rash Neuro: Denies: headache(s), numbness in extremities or weakness in extremities [place]/Lymph: Denies: easy bruising or easy bleeding PFSH ED PFSH: Medical History Bilateral renal stones Bilateral ureteral stones discovered on CT scan during work-up for right flank pain found to be secondary to large distal obstructing ureteral stone. Removed with endoscopy June 2019 Obesity Retained ureteral stent Surgical History Hx of removal of ovary Social History Smoking and tobacco status: never smoked Alcohol intake: never Marital status: Current occupational status: employed History of recent travel: No Female Reproductive History: Date of last menstrual period: 04/11/19 Physical Exam Const: COMMON NORMALS: patient oriented x3 and alert GENERAL APPEARANCE: cooperative and in distress HENMT: HEAD & SCALP: normal to inspection FACE & SINUS: normal facial exam Eye: GENERAL EYE: appearance normal, both eyes and all related structures Neck/C-Spine: COMMON NORMALS: supple, no meningeal signs and no JVD Chest: COMMONS NORMALS: normal inspection of the chest Resp: COMMON NORMALS: normal respiratory effort, No use of accessory muscles and clear to auscultation bilaterally AUSCULTATION: clear to auscultation bilaterally Cardio: COMMON NORMALS: no JVD, regular rate, regular rhythm and No murmurs present (Cardio) RATE: regular rate RHYTHM: regular rhythm GI: COMMON NORMALS: Normal to inspection, nondistended, normoactive bowel sounds present, Soft to palpation and non-tender INSPECTION: Yes normal to inspection AUSCULTATION: Yes normoactive bowel sounds PALPATION: Yes Soft to palpation and Yes Tenderness to palpation present (GI) (right side) Back/Pelvis: COMMON NORMALS: thoracic and lumbar spine normal to inspection Extremity: COMMON NORMALS: normal to inspection Neuro: COMMON NORMALS: patient oriented x3, moves all extremities, no focal motor deficits and no sensory deficits noted SENSORIUM/ORIENTATION: Yes alert MENINGEAL SIGNS: Yes no meningeal signs Psych: COMMON NORMALS: mental status grossly normal, cooperative and normal affect Skin: COMMON NORMALS: no rashes or lesions noted and turgor normal GENERAL SKIN EXAM: no rashes or lesions noted and turgor normal Course ED course: Patient with a history of a large kidney stone that had to be removed about 6 months ago. She presents with signs and symptoms of a another kidney stone. CT shows a 7 mm stone in the right UVJ. I was unable to control her pain in the ED. She was given morphine, hydromorphone, ketorolac and although her pain improved she was still very uncomfortable. Dr. Milner treated her in the past but he is not available at all this week. There is no urology coverage today and the patient requested that if we have to transfer her she like to go to [place] which is closer to her home then [place]. Reevaluation(s): Reevaluation #1: We attempted several times to reach the urologist in [place] and were unsuccessful. I am now waiting for callback from the urologist at [facility] to see if they can accept her there. Reevaluation #2: I spoke with Dr. Ferrer at [facility] and he has accepted the patient in transfer. Vital Signs: Vital signs: Vital Signs Temperature 98.7 F 01/11/20 18:58 Pulse Rate 60 01/11/20 23:29 Respiratory Rate 18 01/11/20 23:29 Blood Pressure 141/80 01/11/20 23:29 Pulse Oximetry 99 01/11/20 23:29 MDM - Abdominal Pain Lab Data: Labs: Lab Results 01/11/20 01/11/20 01/11/20 Range/Units 19:25 19:25 20:42 WBC 11.3 H (4.0-10.0) 10^3/ uL RBC 5.17 (4.1-5.3) 10^6/u L Hgb 14.9 (11.5-15.3) g/dL Hct 43.2 (37.0-47.0) % MCV 83.6 (81-99) fL MCH 28.8 (28.0-34.0) pg MCHC 34.5 (30.0-36.0) g/dL RDW 12.7 (12.1-15.1) % Plt Count 328 (130-400) 10^3/c mm MPV 9.5 (7.4-10.4) fL Neut % (Auto) 82.3 % Lymph % (Auto) 11.6 % [place] % (Auto) 4.9 % Eos % (Auto) 0.5 % Baso % (Auto) 0.4 % Neut # (Auto) 9.30 H (1.8-7.7) 10^3/u L Lymph # (Auto) 1.3 (0.8-4.8) 10^3/u L [place] # (Auto) 0.6 (0.2-0.9) 10^3/u L Eos # (Auto) 0.1 (0.0-0.8) 10^3/u L Baso # (Auto) 0.1 (0.0-0.1) 10^3/u L Nucleated RBC % (a uto) 0 % Nucleated RBCs # 0.0 /100WBC Sodium 134 L (136-145) mmol/L Potassium 3.9 (3.5-5.1) mmol/L Chloride 100 (98-107) mmol/L Carbon Dioxide 20 L (22-29) mmol/L Anion Gap 17.9 (5-19) BUN 22 H (6-20) mg/dL Creatinine 0.9 (0.5-0.9) mg/dL GFR Calculation 66.3 L (90-130) mL/min Glucose 123 H (65-115) mg/dL Calculated Osmolal ity 276 L (285-295) mOsm/k g Calcium 9.2 (8.5-10.5) mg/dL Total Bilirubin 0.5 (0.15-1.2) mg/dL AST 25 (0-32) U/L ALT 19 (0-33) U/L Alkaline Phosphata se 81 (35-105) IU/L Total Protein 8.2 (6.6-8.7) g/dL Albumin 4.8 (3.5-5.2) g/dL Globulin 3.4 (1.3-4.6) g/dL Urine Color Yellow (Yellow) Urine Appearance Clear (CLEAR) Urine pH 5 (5-7) Ur Specific Gravit y 1.015 (1.005-1.030) Urine Protein Neg (Negative) Urine Glucose (UA) Norm (Normal) Urine Ketones 1+ H (Negative) Urine Blood Neg (Negative) Urine Nitrate Negative (Negative) Urine Bilirubin Neg (Negative) Urine Urobilinogen Norm (Negative) mg/dL Ur Leukocyte [place] ase Negative (Negative) SARS-CoV-2 Ag (Rap id) (Negative) 01/12/20 Range/Units 00:31 WBC (4.0-10.0) 10^3/ uL RBC (4.1-5.3) 10^6/u L Hgb (11.5-15.3) g/dL Hct (37.0-47.0) % MCV (81-99) fL MCH (28.0-34.0) pg MCHC (30.0-36.0) g/dL RDW (12.1-15.1) % Plt Count (130-400) 10^3/c mm MPV (7.4-10.4) fL Neut % (Auto) % Lymph % (Auto) % [place] % (Auto) % Eos % (Auto) % Baso % (Auto) % Neut # (Auto) (1.8-7.7) 10^3/u L Lymph # (Auto) (0.8-4.8) 10^3/u L [place] # (Auto) (0.2-0.9) 10^3/u L Eos # (Auto) (0.0-0.8) 10^3/u L Baso # (Auto) (0.0-0.1) 10^3/u L Nucleated RBC % (a uto) % Nucleated RBCs # /100WBC Sodium (136-145) mmol/L Potassium (3.5-5.1) mmol/L Chloride (98-107) mmol/L Carbon Dioxide (22-29) mmol/L Anion Gap (5-19) BUN (6-20) mg/dL Creatinine (0.5-0.9) mg/dL GFR Calculation (90-130) mL/min Glucose (65-115) mg/dL Calculated Osmolal ity (285-295) mOsm/k g Calcium (8.5-10.5) mg/dL Total Bilirubin (0.15-1.2) mg/dL AST (0-32) U/L ALT (0-33) U/L Alkaline Phosphata se (35-105) IU/L Total Protein (6.6-8.7) g/dL Albumin (3.5-5.2) g/dL Globulin (1.3-4.6) g/dL Urine Color (Yellow) Urine Appearance (CLEAR) Urine pH (5-7) Ur Specific Gravit y (1.005-1.030) Urine Protein (Negative) Urine Glucose (UA) (Normal) Urine Ketones (Negative) Urine Blood (Negative) Urine Nitrate (Negative) Urine Bilirubin (Negative) Urine Urobilinogen (Negative) mg/dL Ur Leukocyte [place] ase (Negative) SARS-CoV-2 Ag (Rap id) Negative (Negative) Discharge Plan Discharge Prescriptions: No Action phentermine 37.5 mg capsule 37.5 mg PO QDAY Qty: 30 RF: 0 Chanell-D 24 Hour 180-240 mg tablet extended release 24 hr 1 tab PO QAM Qty: 30 RF: 0 Referrals: Opal Samuels FNP [Primary Care Provider] - Robert Colorado MD [Family Provider] - Discharge Date/Time: 01/12/20 01:05 Coding Level of Care Code ED Environmental Technical Officer for Chg Fwd Exam Comprehensive
[2020-01-11 21:05] LABS: Add Urine Microscopic? NO
[2020-01-11 21:08] LABS: Bilirubin Urine Neg (Negative); Blood Urine Neg (Negative); Glucose Urine UA Norm (Normal); Ketones Urine 1+ (Negative); Leukocyte Esterase Urine Negative (Negative); Nitrate Urine Negative (Negative); Protein Urine Neg (Negative); Specific Gravity, Urine 1.015 (1.005-1.030); Urine Appearance Clear (CLEAR); Urine Color Yellow (Yellow); Urobilinogen Urine Norm (Negative); pH Urine 5 (5-7)
--- NOTE | 2020-01-12 00:57 | PC.NURSE ---
patient has refused transport via [facility] due to cost being a self-pay patient; call made to Dr. Romo to ask if patient could go by POV instead and still be a direct admit. Dr. Romo called back saying that this was acceptable, to not have anything to eat or drink, must come straight to the ER and check in and must drive.
[2020-01-12 01:00] LABS: SARS Covid-2 Antigen Negative (Negative)
== END 2020-01-12 01:05 ==
PROVIDERS: Emergency Medicine; Emergency Provider Emergency Medicine; Family Provider Family Medicine; PCP Registered Nurse
DX: R10.9 Unspecified abdominal pain (principal); Z87.442 Personal history of urinary calculi
CPT/HCPCS: 12345; 74176; 80053; 81003; 85025; 87426; 96374; 96375; 96376; 99282; 99283; J1170; J2270; J2405; J2765

== ENCOUNTER 2020-01-26 14:53 | Emergency (ER) | payer SELFPAY ==
[2020-01-26 15:56] VITALS: BP 131/88; PULSE 84; RESP 16; TEMP 36.2; O2SAT 97; BMI 31.4
--- NOTE | 2020-01-26 16:12 | CTR_ITS ---
PROCEDURE INFORMATION: Exam: CT Abdomen And Pelvis Without Contrast Exam date and time: 01/26/2020 4:23 PM Age: 49 years old Clinical indication: Abdominal pain; Left; Prior surgery; Surgery date: 6+ months; Surgery type: Appy; Patient HX: Recent R uvj stone removal now w C/O L flank pain and nausea; Additional info: Left flank pain. Recent surgery for kidney stones TECHNIQUE: Imaging protocol: Computed tomography of the abdomen and pelvis without contrast. Radiation optimization: All CT scans at this facility use at least one of these dose optimization techniques: automated exposure control; mA and/or kV adjustment per patient size (includes targeted exams where dose is matched to clinical indication); or iterative reconstruction. COMPARISON: CT kidney stone [id number] 01/11/2020 7:58 PM RADIATION DOSE METRICS: Total DLP (mGy-cm): 1154.45 FINDINGS: Liver: Normal. No mass. Gallbladder and bile ducts: Gallstones are identified although there are no CT findings to suggest cholecystitis. Pancreas: Normal. No ductal dilation. Spleen: Normal. No splenomegaly. Adrenals: Normal. No mass. Kidneys and ureters: Calcification at the right UVJ has resolved in the interval. Right hydroureteronephrosis has improved although there is residual right hydronephrosis. No renal calcification or hydronephrosis on the left. Stomach and bowel: Unremarkable. No obstruction. No mucosal thickening. Appendix: No evidence of appendicitis. Intraperitoneal space: Unremarkable. No free air. No significant fluid collection. Vasculature: Unremarkable. No abdominal aortic aneurysm. Lymph nodes: Unremarkable. No enlarged lymph nodes. Urinary bladder: Unremarkable as visualized. Reproductive: Unremarkable as visualized. Bones/joints: Unremarkable. No acute fracture. Soft tissues: Unremarkable. CT/CT kidney stone [id number] IMPRESSION: Calcification at the right UVJ has resolved when compared with 01/11/2020. Right hydroureteronephrosis has improved although there is residual right hydronephrosis. Radiation Dose CTDIVOL = (mGy): DLP = 1154.45 (mGy-cm)
--- NOTE | 2020-01-26 16:14 | W.ED.GENADLT ---
HPI - General Adult General: Chief complaint: General Medical Stated complaint: possible kidney stones Time Seen by Provider: 01/26/20 16:01 Source: patient Mode of arrival: ambulatory History of Present Illness: HPI narrative: Patient has had 2 episodes of nephrolithiasis in the last 6 months. Both times she required surgery to remove the stones. Last surgery was 2 weeks ago and her stent has come out. She developed left flank pain 3 days ago and has been gradually worsening. She took her home Ensign which has been helping but only last for a few hours. She is here to evaluate to see if she has a complicated stone or other pathology. Onset (ago): day(s) (3) Location: abdomen and left Severity: severe Quality: stabbing Pain Consistency: constant and now resolved Relieving factors: medication (norco) Associated symptoms: Reports nausea; Deny chest pain, confusion, cough, diaphoresis, decreased appetite, dyspnea, fevers/chills, headache(s), malaise, rash, palpitations, seizures, short of breath, syncope, vomiting, weakness or other Treatments prior to arrival: other (norco) Review of Systems General: Reports: 10 or more systems reviewed and unremarkable except in HPI and below Const: Denies: malaise or diaphoresis Eyes: Denies: change in vision or blurry vision ENMT: Denies: throat pain, enlarged tonsils, odynophagia, hoarseness, mouth pain or swelling of lips/tongue Card: Denies: chest pain, palpitations or syncope Resp: Denies: dyspnea GI: Reports: nausea; Denies: vomiting : Denies: flank pain, difficulty voiding, dysuria, urinary frequency, urinary urgency or urinary hesitancy Musc: Denies: neck pain, back pain or extremity swelling Skin/Breast: Denies: rash Neuro: Denies: headache(s) or confusion Endo: Denies: polyuria, polydipsia or tired all the time PFS ED PFSH: Medical History Bilateral renal stones Bilateral ureteral stones discovered on CT scan during work-up for right flank pain found to be secondary to large distal obstructing ureteral stone. Removed with endoscopy June 2019 Obesity Retained ureteral stent Surgical History Hx of removal of ovary Social History Smoking and tobacco status: never smoked Alcohol intake: never Marital status: Current occupational status: employed History of recent travel: No Female Reproductive History: Date of last menstrual period: 04/11/19 Physical Exam Const: COMMON NORMALS: no acute distress, average body habitus, patient oriented x3, no limitations, healthy appearing, alert and well nourished Eye: COMMON NORMALS: Equal, round and reactive pupils present, EOMs intact bilaterally, conjunctivae normal and no scleral icterus CONJUNCTIVA: Yes conjunctivae normal PUPIL: Yes Equal, round and reactive pupils present Neck/C-Spine: COMMON NORMALS: no meningeal signs and no JVD Resp: COMMON NORMALS: normal respiratory effort, No retractions, No use of accessory muscles, clear to auscultation bilaterally and percussion normal AUSCULTATION: clear to auscultation bilaterally PERCUSSION: percussion normal Cardio: COMMON NORMALS: no JVD, regular rate, regular rhythm, S1 normal heart sound present, S2 normal heart sound present, No gallops present (Cardio), No clicks present (Cardio), No murmurs present (Cardio), No rub (Cardio) and Peripheral pulses 2+ throughout RATE: regular rate RHYTHM: regular rhythm HEART SOUNDS: S1 normal heart sound present and S2 normal heart sound present PERIPHERAL PULSES: Peripheral pulses 2+ throughout GI: COMMON NORMALS: Normal to inspection, nondistended, normoactive bowel sounds present, Soft to palpation, non-tender, No hepatosplenomegaly present, no masses and no bruits PALPATION: Yes Soft to palpation and Yes No hepatosplenomegaly present : COMMON NORMALS: Yes no CVA tenderness BLADDER/KIDNEY EXAM: Yes no CVA tenderness Back/Pelvis: COMMON NORMALS: no CVA tenderness Extremity: COMMON NORMALS: normal to inspection, full ROM, capillary refill normal, no calf tenderness and no pedal edema Neuro: COMMON NORMALS: patient oriented x3 SENSORIUM/ORIENTATION: Yes alert MENINGEAL SIGNS: Yes no meningeal signs Skin: COMMON NORMALS: no rashes or lesions noted, no wounds, turgor normal, no jaundice, no petechiae and no mottling GENERAL SKIN EXAM: no rashes or lesions noted and turgor normal Course Reevaluation(s): Reevaluation #1: Discussed her lab and imaging findings with her. Negative for acute findings. If she had kidney stones looks like she has plastic on the left. Compared to her last at this time her right hydronephrosis is better. We will discharge her home to continue her current medications. She voiced understanding and is in agreement with this plan. She wants something for constipation which has been caused by the pain medication. Time: 17:38 Vital Signs: Vital signs: Vital Signs Temperature 97.2 F L 01/26/20 15:56 Pulse Rate 86 01/26/20 18:05 Respiratory Rate 17 01/26/20 18:05 Blood Pressure 118/87 01/26/20 18:05 Pulse Oximetry 90 01/26/20 18:05 MDM - General Adult MDM Narrative: Medical decision making narrative: Patient who has had recurrence urolithiasis presents to the emergency department with left flank pain. She was concerned that she may be having another episode on evaluation in the ED was negative for urolithiasis. Possibilities include she may have passed a stone versus it was a different etiology for her pain today. She is discharged home with some pain medication, antiemetic, and laxatives. She has had constipation secondary to pain medication. Medical Records: Attestation: I reviewed the patient's medical records. Lab Data: Attestation: I reviewed the patient's lab results. Labs: Lab Results 01/26/20 01/26/20 01/26/20 Range/Units 15:05 16:38 16:38 WBC 5.5 (4.0-10.0) 10^3/ uL RBC 5.35 H (4.1-5.3) 10^6/u L Hgb 15.1 (11.5-15.3) g/dL Hct 45.5 (37.0-47.0) % MCV 85.0 (81-99) fL MCH 28.2 (28.0-34.0) pg MCHC 33.2 (30.0-36.0) g/dL RDW 12.7 (12.1-15.1) % Plt Count 289 (130-400) 10^3/c mm MPV 8.9 (7.4-10.4) fL Neut % (Auto) 71.4 % Lymph % (Auto) 22.1 % [place] % (Auto) 5.3 % Eos % (Auto) 0.5 % Baso % (Auto) 0.5 % Neut # (Auto) 3.90 (1.8-7.7) 10^3/u L Lymph # (Auto) 1.2 (0.8-4.8) 10^3/u L [place] # (Auto) 0.3 (0.2-0.9) 10^3/u L Eos # (Auto) 0.0 (0.0-0.8) 10^3/u L Baso # (Auto) 0.0 (0.0-0.1) 10^3/u L Nucleated RBC % (a uto) 0 % Nucleated RBCs # 0.0 /100WBC Sodium 137 (136-145) mmol/L Potassium 4.2 (3.5-5.1) mmol/L Chloride 101 (98-107) mmol/L Carbon Dioxide 26 (22-29) mmol/L Anion Gap 14.2 (5-19) BUN 13 (6-20) mg/dL Creatinine 0.7 (0.5-0.9) mg/dL GFR Calculation 88.6 L (90-130) mL/min Glucose 115 (65-115) mg/dL Calculated Osmolal ity 285 (285-295) mOsm/k g Calcium 9.6 (8.5-10.5) mg/dL Total Bilirubin 0.4 (0.15-1.2) mg/dL AST 21 (0-32) U/L ALT 16 (0-33) U/L Alkaline Phosphata se 72 (35-105) IU/L C-Reactive Protein 0.5 (0.0-4.9) mg/L Total Protein 7.7 (6.6-8.7) g/dL Albumin 4.7 (3.5-5.2) g/dL Globulin 3.0 (1.3-4.6) g/dL Lipase 18 (13-60) U/L Urine Color Yellow (Yellow) Urine Appearance Clear (CLEAR) Urine pH 5 (5-7) Ur Specific Gravit y 1.025 (1.005-1.030) Urine Protein Neg (Negative) Urine Glucose (UA) Norm (Normal) Urine Ketones 1+ H (Negative) Urine Blood Trace H (Negative) Urine Nitrate Negative (Negative) Urine Bilirubin Neg (Negative) Urine Urobilinogen Norm (Negative) mg/dL Ur Leukocyte Med[place] ase Negative (Negative) Urine RBC Rare (0-2) /hpf Urine WBC 5-10 H (0-5) /hpf Ur Squamous Epith Cells 5-10 H (0-5) /hpf Amorphous Sediment Not Reportable Urine Bacteria 1+ H (NONE) /hpf Imaging Data^: CT Abd/Pel: Attestation: I personally reviewed and interpreted this imaging study as follows: Radiologist's impression: [address] [address] [address] Scan Report Signed Patient: Dylan Mcmanus #: [id number] : 1970Acct#:[id number] Age/Sex: 49 / FADM Date: 01/26/20 Loc: ERRoom/Bed: Attending Dr: Ordering Provider/Ordering MD: Jem [place]olan [place] [facility] [place] Service: 01/26/20 Procedure(s): CT kidney stone [id number] Accession Number(s): [id number] Report Number: [id number] PROCEDURE INFORMATION: Exam: CT Abdomen And Pelvis Without Contrast Exam date and time: 01/26/2020 4:23 PM Age: 49 years old Clinical indication: Abdominal pain; Left; Prior surgery; Surgery date: 6+ months; Surgery type: Appy; Patient HX: Recent R uvj stone removal now w C/O L flank pain and nausea; Additional info: Left flank pain. Recent surgery for kidney stones TECHNIQUE: Imaging protocol: Computed tomography of the abdomen and pelvis without contrast. Radiation optimization: All CT scans at this facility use at least one of these dose optimization techniques: automated exposure control; mA and/or kV adjustment per patient size (includes targeted exams where dose is matched to clinical indication); or iterative reconstruction. COMPARISON: CT kidney stone [id number] 01/11/2020 7:58 PM RADIATION DOSE METRICS: Total DLP (mGy-cm): 1154.45 FINDINGS: Liver: Normal. No mass. Gallbladder and bile ducts: Gallstones are identified although there are no CT findings to suggest cholecystitis. Pancreas: Normal. No ductal dilation. Spleen: Normal. No splenomegaly. Adrenals: Normal. No mass. Kidneys and ureters: Calcification at the right UVJ has resolved in the interval. Right hydroureteronephrosis has improved although there is residual right hydronephrosis. No renal calcification or hydronephrosis on the left. Stomach and bowel: Unremarkable. No obstruction. No mucosal thickening. Appendix: No evidence of appendicitis. Intraperitoneal space: Unremarkable. No free air. No significant fluid collection. Vasculature: Unremarkable. No abdominal aortic aneurysm. Lymph nodes: Unremarkable. No enlarged lymph nodes. Urinary bladder: Unremarkable as visualized. Reproductive: Unremarkable as visualized. Bones/joints: Unremarkable. No acute fracture. Soft tissues: Unremarkable. CT/CT kidney stone [id number] IMPRESSION: Calcification at the right UVJ has resolved when compared with 01/11/2020. Right hydroureteronephrosis has improved although there is residual right hydronephrosis. Radiation Dose CTDIVOL = (mGy): DLP = 1154.45 (mGy-cm) Dictated By:Levi Carolina MD Signed By:Levi Carolina MDSigned Date/Time:01/26/201657 DD/ 55 Discharge Plan Discharge Patient Disposition: Home Clinical Impression: Acute left flank pain Condition: Stable Prescriptions: New Ensign 7.5-325 mg tablet 1 tab PO Q8H PRN (Reason: pain) Qty: 12 RF: 0 Miralax 17 gram/dose powder 8.5 gm PO DAILY PRN (Reason: constipation) 14 Days Qty: 119 RF: 0 Continued phentermine 37.5 mg capsule 37.5 mg PO QDAY Qty: 30 RF: 0 Chanell-D 24 Hour 180-240 mg tablet extended release 24 hr 1 tab PO QAM Qty: 30 RF: 0 Discharge Orders: Discharge Order (Routine); Ordered 01/26/20 Ordered By: Jem Dolan Referrals: Opal Samuels FNP [Primary Care Provider] - Robert Colorado MD [Family Provider] - 1-3 days Discharge Diet: Usual diet Discharge Activity: Increase activity as tolerated Patient Instructions: Low Oxalate Diet (ED), Flank Pain (ED) Activity Restrictions/Additional Instructions: Return for any new or worsening symptoms. Drink plenty of fluids to keep well-hydrated. Observe the low oxalate diet that has been printed out with your instructions, this will help you reduce the amount of kidney stones reproduced. Follow-up with your primary care provider within 3 days. Take the medications as prescribed Discharge Date/Time: 01/26/20 18:06 Coding Level of Care Code ED Site Damage Prevention Technician for Johnathan Fwd Exam Comprehensive
[2020-01-26 16:15] VITALS: BP 133/73; PULSE 76; RESP 16; O2SAT 98
[2020-01-26 16:51] LABS: Glucose Urine UA Norm (Normal); Protein Urine Neg (Negative); Specific Gravity, Urine 1.025 (1.005-1.030); Urine Appearance Clear (CLEAR); Urine Color Yellow (Yellow); pH Urine 5 (5-7)
[2020-01-26 16:52] LABS: Add Urine Culture? No; Add Urine Microscopic? YES; Bacteria Urine 1+ /hpf; Bilirubin Urine Neg (Negative); Blood Urine Trace (Negative); Ketones Urine 1+ (Negative); Leukocyte Esterase Urine Negative (Negative); Nitrate Urine Negative (Negative); RBC Urine RARE /hpf (0-2); Urobilinogen Urine Norm (Negative)
[2020-01-26] MEDS: ondansetron 2 mg/ML SDV 2 mL 4 MG IVP (16:56)
[2020-01-26 16:58] LABS: Basophils % 0.5 %; Eosinophils % 0.5 %; Hematocrit 45.5 % (37.0-47.0); Hemoglobin 15.1 g/dL (11.5-15.3); Lymphocytes # 1.2 10^3/uL (0.8-4.8); Lymphocytes % 22.1 %; Mean Corpuscular HGB Conc 33.2 g/dL (30.0-36.0); Mean Corpuscular Hemoglobin 28.2 pg (28.0-34.0); Mean Platelet Volume 8.9 fL (7.4-10.4); Monocytes # 0.3 10^3/uL (0.2-0.9); Monocytes % 5.3 %; Neutrophils % 71.4 %; Nucleated Red Blood Cells % 0 %; Platelet Count 289 10^3/cmm (130-400); Red Blood Count 5.35 10^6/uL (4.1-5.3); Red Cell Distribution Width 12.7 % (12.1-15.1); White Blood Count 5.5 10^3/uL (4.0-10.0)
[2020-01-26] MEDS: ketorolac 30 mg/mL INJ IVP (16:58)
[2020-01-26 17:05] LABS: Alanine Aminotransferase 16 U/L (0-33); Albumin Level 4.7 g/dL (3.5-5.2); Alkaline Phosphatase 72 IU/L (35-105); Anion Gap 14.2 (5-19); Aspartate Amino Transferase 21 U/L (0-32); Blood Urea Nitrogen 13 mg/dL (6-20); C Reactive Protein 0.5 mg/L (0.0-4.9); Calcium 9.6 mg/dL (8.5-10.5); Carbon Dioxide 26 mmol/L (22-29); Chloride 101 mmol/L (98-107); Glomerular Filtration Rate 88.6 mL/min (90-130); Glucose 115 mg/dL (65-115); Lipase 18 U/L (13-60); Osmolality Calculated 285 mOsm/kg (285-295); Potassium 4.2 mmol/L (3.5-5.1); Sodium 137 mmol/L (136-145); Total Bilirubin 0.4 mg/dL (0.15-1.2); Total Protein 7.7 g/dL (6.6-8.7)
[2020-01-26] MEDS: magnesium citrate Btl 296 mL 150 ML PO (18:01)
[2020-01-26 18:05] VITALS: BP 118/87; PULSE 86; RESP 17; O2SAT 90
== END 2020-01-26 18:06 | disposition home or self-care (01) ==
PROVIDERS: Emergency Provider Family Medicine; Family Provider Family Medicine; PCP Registered Nurse
DX: R10.9 Unspecified abdominal pain (principal); Z87.442 Personal history of urinary calculi
CPT/HCPCS: 12345; 36415; 74176; 80053; 81001; 83690; 85025; 86140; 96374; 96375; 99283; J1885; J2405

== ENCOUNTER 2020-10-28 02:33 | Emergency (ER) | payer SELFPAY ==
[2020-10-28 02:46] VITALS: BP 145/88; PULSE 88; RESP 18; TEMP 36.4; O2SAT 97; BMI 30.2
[2020-10-28] MEDS: ondansetron 2 mg/ML SDV 2 mL 4 MG IVP (03:03)
[2020-10-28 03:04] VITALS: RESP 18; O2SAT 99
[2020-10-28] MEDS: HYDROmorphone 1 mg/mL INJ 1 mL IVP (03:04)
[2020-10-28 03:11] LABS: Basophils % 0.6 %; Eosinophils # 0.1 10^3/uL (0.0-0.8); Eosinophils % 1.3 %; Hematocrit 45.2 % (37.0-47.0); Hemoglobin 15.2 g/dL (11.5-15.3); Lymphocytes # 1.4 10^3/uL (0.8-4.8); Mean Corpuscular HGB Conc 33.6 g/dL (30.0-36.0); Mean Corpuscular Hemoglobin 28.4 pg (28.0-34.0); Mean Corpuscular Volume 84.3 fL (81-99); Mean Platelet Volume 8.8 fL (7.4-10.4); Monocytes # 0.7 10^3/uL (0.2-0.9); Monocytes % 9.7 %; Neutrophils # 4.79 10^3/uL (1.8-7.7); Neutrophils % 68.3 %; Nucleated Red Blood Cells % 0 %; Platelet Count 273 10^3/cmm (130-400); Red Blood Count 5.36 10^6/uL (4.1-5.3); Red Cell Distribution Width 12.7 % (12.1-15.1)
--- NOTE | 2020-10-28 03:17 | ED_ITS ---
HPI - Female Genitourinary General: Chief complaint: Urogenital-Female Stated complaint: kidney stone Time Seen by Provider: 10/28/20 02:51 Source: patient Mode of arrival: ambulatory History of Present Illness: HPI Narrative: 49-year-old female has history of multiple kidney stones in the past. States she started having a sharp right- sided flank pain earlier today. States been severe in nature and feels like her previous kidney stones. She states it radiates down to her right groin. Denies any worsening improving factors. She has had nausea and vomiting with the pain. She rates her pain a 10 out of 10 currently. Denies any fevers or dysuria. Associated symptoms: Reports nausea; Deny headache(s) Date of Last Menstrual Period: 04/11/19 Review of Systems Const: Denies: fever(s), chills, body aches or change in appetite Eyes: Denies: blurry vision or eye discomfort ENMT: Denies: throat pain or dental pain Card: Denies: chest pain Resp: Denies: dyspnea GI: Reports: nausea and vomiting : Reports: flank pain Musc: Denies: neck pain or back pain Skin/Breast: Denies: rash Neuro: Denies: headache(s) Psych: Denies: depression Emerson/Lymph: Denies: easy bruising All/Imm: Denies: urticaria PFSH ED PFSH: Medical History (Updated 10/28/20 @ 04:31 by Lorena Virk MD) Bilateral renal stones Bilateral ureteral stones discovered on CT scan during work-up for right flank pain found to be secondary to large distal obstructing ureteral stone. Removed with endoscopy June 2019 Obesity Retained ureteral stent Surgical History Hx of removal of ovary Social History Smoking and tobacco status: never smoked Alcohol intake: never Marital status: Current occupational status: employed History of recent travel: No Female Reproductive History: Date of last menstrual period: 04/11/19 Physical Exam Const: COMMON NORMALS: no acute distress, patient oriented x3 and healthy appearing HENMT: COMMON NORMALS: normocephalic and atraumatic HEAD & SCALP: normocephalic and atraumatic Eye: COMMON NORMALS: Equal, round and reactive pupils present and EOMs intact bilaterally PUPIL: Yes Equal, round and reactive pupils present Neck/C-Spine: COMMON NORMALS: full ROM and supple Chest: COMMONS NORMALS: normal inspection of the chest and normal palpation of entire chest wall Resp: COMMON NORMALS: normal respiratory effort, No retractions, No use of accessory muscles and clear to auscultation bilaterally AUSCULTATION: clear to auscultation bilaterally Cardio: COMMON NORMALS: regular rate, regular rhythm and No murmurs present (Cardio) RATE: regular rate RHYTHM: regular rhythm GI: COMMON NORMALS: Normal to inspection, nondistended, normoactive bowel sounds present, Soft to palpation, non-tender and no masses PALPATION: Yes Soft to palpation Extremity: COMMON NORMALS: normal to inspection and full ROM Neuro: COMMON NORMALS: patient oriented x3, moves all extremities and no focal motor deficits Psych: COMMON NORMALS: mental status grossly normal, Normal thought process present and cooperative THOUGHT PROCESS: Normal thought process present Skin: COMMON NORMALS: no rashes or lesions noted and no wounds GENERAL SKIN EXAM: no rashes or lesions noted Course Vital Signs: Vital signs: Vital Signs Temperature 97.5 F L 10/28/20 02:46 Pulse Rate 83 10/28/20 04:48 Respiratory Rate 16 10/28/20 04:48 Blood Pressure 135/85 10/28/20 04:48 Pulse Oximetry 100 10/28/20 04:48 MDM - Female MDM Narrative: Medical decision making narrative: Patient presents here with flank pain consistent with a likely kidney stone. She has previous history of stones and this is similar. She does have hematuria as well. Abdominal exam here is benign and nontender. White count is normal. We will place her on pain meds and she is stable for discharge and is to follow-up with urology. She is return in 1 to 2 days if her pain continues. She understands agrees to plan. Lab Data: Labs: Lab Results 10/28/20 10/28/20 10/28/20 Range/Units 02:59 02:59 02:59 WBC 7.0 (4.0-10.0) 10^3/ uL RBC 5.36 H (4.1-5.3) 10^6/u L Hgb 15.2 (11.5-15.3) g/dL Hct 45.2 (37.0-47.0) % MCV 84.3 (81-99) fL MCH 28.4 (28.0-34.0) pg MCHC 33.6 (30.0-36.0) g/dL RDW 12.7 (12.1-15.1) % Plt Count 273 (130-400) 10^3/c mm MPV 8.8 (7.4-10.4) fL Neut % (Auto) 68.3 % Lymph % (Auto) 20.0 % [place] % (Auto) 9.7 % Eos % (Auto) 1.3 % Baso % (Auto) 0.6 % Neut # (Auto) 4.79 (1.8-7.7) 10^3/u L Lymph # (Auto) 1.4 (0.8-4.8) 10^3/u L [place] # (Auto) 0.7 (0.2-0.9) 10^3/u L Eos # (Auto) 0.1 (0.0-0.8) 10^3/u L Baso # (Auto) 0.0 (0.0-0.1) 10^3/u L Nucleated RBC % (a uto) 0 % Nucleated RBCs # 0.0 /100WBC Sodium 136 (136-145) mmol/L Potassium 3.5 (3.5-5.1) mmol/L Chloride 97 L (98-107) mmol/L Carbon Dioxide 28 (22-29) mmol/L Anion Gap 14.5 (5-19) BUN 16 (6-20) mg/dL Creatinine 0.7 (0.5-0.9) mg/dL GFR Calculation 88.6 L (90-130) mL/min Glucose 117 H (65-115) mg/dL Calculated Osmolal ity 284 L (285-295) mOsm/k g Calcium 9.2 (8.5-10.5) mg/dL Total Bilirubin 0.4 (0.15-1.2) mg/dL AST 19 (0-32) U/L ALT 15 (0-33) U/L Alkaline Phosphata se 108 H (35-105) IU/L Total Protein 7.7 (6.6-8.7) g/dL Albumin 4.4 (3.5-5.2) g/dL Globulin 3.3 (1.3-4.6) g/dL Lipase 21 (13-60) U/L Urine Color Yellow (Yellow) Urine Appearance Clear (CLEAR) Urine pH 5 (5-7) Ur Specific Gravit y 1.030 (1.005-1.030) Urine Protein Neg (Negative) Urine Glucose (UA) Norm (Normal) Urine Ketones Negative (Negative) Urine Blood 2+ H (Negative) Urine Nitrate Negative (Negative) Urine Bilirubin 1+ H (Negative) Urine Urobilinogen Norm (Negative) mg/dL Ur Leukocyte Medina ase Negative (Negative) Urine RBC 0-4 H (0-2) /hpf Urine WBC 0-4 H (0-5) /hpf Ur Squamous Epith Cells 0-4 H (0-5) /hpf Calcium Oxalate Cr ystal 5-10 H /hpf Amorphous Sediment Not Reportable Urine Bacteria Trace (NONE) /hpf Urine Mucus 1+ /hpf Imaging Data: KUB: Attestation: I personally reviewed and interpreted this imaging study as follows: My impression: no acute findings Discharge Plan Discharge Patient Disposition: Home Clinical Impression: Right flank pain Condition: Stable Prescriptions: New hydrocodone-acetaminophen 5-325 mg tablet 1 tab PO Q6H PRN (Reason: pain) Qty: 14 RF: 0 ondansetron 4 mg tablet,disintegrating 4 mg PO Q6H PRN (Reason: nausea and vomiting) Qty: 14 RF: 0 Miralax 17 gram/dose powder 17 g PO DAILY PRN (Reason: constipation) Qty: 119 RF: 0 No Action Chanell-D 24 Hour 180-240 mg tablet extended release 24 hr 1 tab PO QAM Qty: 30 RF: 0 New [place] 7.5-325 mg tablet 1 tab PO Q8H PRN (Reason: pain) Qty: 12 RF: 0 Discharge Orders: Discharge ED (Routine); Ordered 10/28/20 Ordered By: Lorena Virk Referrals: Oscar Milner MD [Physician] - 1-3 days Discharge Diet: Advance as tolerated Discharge Activity: Resume usual activity Patient Instructions: Abdominal Pain (ED), Opioid Safety Coding Level of Care Code ED Cut Off Saw Set Up Operator for Chg Fwd Exam Comprehensive
--- NOTE | 2020-10-28 03:18 | XRR_ITS ---
PROCEDURE INFORMATION: Exam: XR Abdomen Exam date and time: 10/28/2020 3:18 AM Age: 49 years old Clinical indication: Abdominal pain; Flank; Right; Additional info: Right flank pain TECHNIQUE: Imaging protocol: XR of the abdomen. Views: Frontal supine view of the abdomen. 1 View. COMPARISON: CT kidney stone [id number] 01/26/2020 4:23 PM FINDINGS: Gastrointestinal tract: Normal. No bowel dilation. Organs: No discrete radiopaque renal calculus identified. Evaluation of the kidney shadows is limited by overlying bowel. Phleboliths are seen in the pelvis bilaterally. Bones/joints: Unremarkable. XR/XR KUB [id number] IMPRESSION: No discrete radiopaque renal stone seen.
[2020-10-28 03:25] LABS: Alanine Aminotransferase 15 U/L (0-33); Albumin Level 4.4 g/dL (3.5-5.2); Alkaline Phosphatase 108 IU/L (35-105); Anion Gap 14.5 (5-19); Aspartate Amino Transferase 19 U/L (0-32); Blood Urea Nitrogen 16 mg/dL (6-20); Calcium 9.2 mg/dL (8.5-10.5); Carbon Dioxide 28 mmol/L (22-29); Chloride 97 mmol/L (98-107); Globulin 3.3 g/dL (1.3-4.6); Glomerular Filtration Rate 88.6 mL/min (90-130); Glucose 117 mg/dL (65-115); Lipase 21 U/L (13-60); Osmolality Calculated 284 mOsm/kg (285-295); Potassium 3.5 mmol/L (3.5-5.1); Sodium 136 mmol/L (136-145); Total Bilirubin 0.4 mg/dL (0.15-1.2); Total Protein 7.7 g/dL (6.6-8.7)
[2020-10-28 03:28] LABS: Add Urine Microscopic? YES; Bilirubin Urine 1+ (Negative); Blood Urine 2+ (Negative); Glucose Urine UA Norm (Normal); Ketones Urine Negative (Negative); Leukocyte Esterase Urine Negative (Negative); Nitrate Urine Negative (Negative); Protein Urine Neg (Negative); RBC Urine 0-4 /hpf (0-2); Squamous Epithelial Cell Urine 0-4 /hpf (0-5); Urine Appearance Clear (CLEAR); Urine Color Yellow (Yellow); Urobilinogen Urine Norm (Negative); pH Urine 5 (5-7)
[2020-10-28 03:29] LABS: Bacteria Urine TRACE /hpf; Mucus Urine 1+ /hpf; WBC Urine 0-4 /hpf (0-5)
[2020-10-28] MEDS: ketorolac 30 mg/mL INJ 15 MG IVP (04:42)
[2020-10-28] MEDS: HYDROcodone-acetaminophen 5-325 mg Tablet 1 TAB PO (04:42)
[2020-10-28 04:48] VITALS: BP 135/85; PULSE 83; RESP 16; O2SAT 100
== END 2020-10-28 04:49 | disposition home or self-care (01) ==
PROVIDERS: Emergency Provider Emergency Medicine
DX: R10.9 Unspecified abdominal pain (principal)
CPT/HCPCS: 74018; 80053; 81001; 83690; 85025; 96374; 96375; 99284; J1170; J1885; J2405

== ENCOUNTER 2020-11-09 06:56 | Emergency (ER) | payer SELFPAY ==
[2020-11-09 06:59] VITALS: BP 114/80; PULSE 105; RESP 18; TEMP 36.7; O2SAT 96; BMI 30.8
--- NOTE | 2020-11-09 07:26 | ED_ITS ---
HPI - Back Pain/Injury General: Chief Complaint: Back Pain/Injury Stated Complaint: Pain in lower back Time Seen by Provider: 11/09/20 07:12 Source: patient Mode of arrival: ambulatory Limitations: no limitations History of Present Illness: HPI Narrative: 49-year-old female patient presents to the emergency department complaining of bilateral flank pain. Patient states this started this a.m. Patient states that she has had 7 kidney stones this past year. Patient states it feels like a kidney stone. Patient denies any injury or trauma. Patient denies any urinary symptoms. Patient denies any abdominal pain or fever. Associated symptoms: Deny abdominal pain, chills, change in bowel habits, difficulty walking, dysuria, fatigue, fever(s), hematuria, nausea, syncope, urinary urgency or vomiting Review of Systems Const: Denies: fever(s), chills, body aches, change in appetite, change in weight, fatigue, malaise or diaphoresis Eyes: Denies: change in vision, blurry vision, blind spots, photophobia, eye discomfort, eye discharge, eye redness, floaters or seeing flashes ENMT: Denies: throat pain, uvular edema, enlarged tonsils, odynophagia, hoarseness, mouth pain, swelling of lips/tongue, oral sores, bleeding gums, dental pain, dry mouth, ear or mastoid pain, ear discharge, change in hearing, t innitus, disequilibrium, nasal discharge, nasal congestion, post nasal drip or sinus pain Card: Denies: chest pain, palpitations, irregular heart rhythm, edema, swelling of feet/ankles, lightheadedness, syncope, pre-syncope, dyspnea on exertion, orthopnea, leg pain with exertion or acrocyanosis Resp: Denies: dyspnea, productive cough, non-productive cough, wheezing, stridor, pain on inspiration, change in phlegm color, hemoptysis or chest congestion GI: Denies: abdominal pain, nausea, vomiting, hematemesis, dysphagia, diarrhea, constipation, GI cramping, change in bowel habits or rectal pain : Reports: flank pain; Denies: difficulty voiding, dysuria, urinary frequency, urinary urgency, urinary hesitancy or hematuria Musc: Denies: neck pain, back pain, extremity pain, extremity swelling, joint pain, joint swelling, joint redness, joint warmth or deformity Skin/Breast: Denies: rash, pruritus, erythema, sores, new lesions, changes in skin color or dry skin Neuro: Denies: headache(s), numbness in extremities, weakness in extremities, sensory changes, lack of coordination, difficulty walking, frequent falls, dizziness, vertigo, confusion, behavioral changes, Slurred speech present, difficulty communicating thoughts or seizure-like activity Psych: Denies: anxiety, depression, suicidal ideation or homicidal ideation Endo: Denies: polyuria, polydipsia, tired all the time, cold intolerance, excessive sweating, flushing, hot flashes or heat intolerance Emerson/Lymph: Denies: easy bruising, easy bleeding, petechiae, purpura, enlarged lymph nodes or tender lymph nodes All/Imm: Denies: urticaria, throat swelling, tongue swelling, facial swelling, acute wheezing or itchy eyes PFSH ED PFSH: Medical History (Updated 11/09/20 @ 10:19 by Karli Ruiz) Bilateral renal stones Bilateral ureteral stones discovered on CT scan during work-up for right flank pain found to be secondary to large distal obstructing ureteral stone. Removed with endoscopy June 2019 Obesity Retained ureteral stent Surgical History Hx of removal of ovary Social History Smoking and tobacco status: never smoked Alcohol intake: never Marital status: Current occupational status: employed History of recent travel: No Female Reproductive History: Date of last menstrual period: 04/11/19 Physical Exam Const: COMMON NORMALS: no acute distress, patient oriented x3, healthy appearing, alert and well nourished GENERAL APPEARANCE: cooperative, comfortable, well kempt and well developed; not ill appearing ORIENTATION/CONSCIOUSNESS: Yes awake, Yes oriented to person, Yes oriented to place and Yes oriented to time HENMT: COMMON NORMALS: normocephalic, atraumatic, hearing grossly normal bilaterally, external ears normal, EAC's normal, TM's normal bilaterally, Normal external nose present, Normal nasal mucous membranes and turbinates present and moist oral mucous membranes HEAD & SCALP: normal to inspection, normocephalic and atraumatic FACE & SINUS: normal facial exam, sinuses nontender and face symmetric NOSE: Normal external nose present, Normal nares present, Normal nasal mucous membranes and turbinates present, No nasal discharge present and Abnormal external nose present EXTERNAL EAR: Yes external ears normal and Yes mastoids normal EXTERNAL AUDITORY CANAL: EAC's normal TYMPANIC MEMBRANE: TM's normal bilaterally MOUTH: Normal oral and palatal mucosa present, lip normal, tongue normal and Normal salivary glands and ducts present THROAT: no uvular edema Eye: COMMON NORMALS: Equal, round and reactive pupils present, EOMs intact bilaterally, conjunctivae normal, no scleral icterus and no papilledema GENERAL EYE: appearance normal, both eyes and all related structures EYELID: eyelids normal CONJUNCTIVA: Yes conjunctivae normal SCLERA: sclerae normal CORNEA: Yes corneas normal PUPIL: Yes Equal, round and reactive pupils present DIRECT OPHTHALMOSCOPY: Yes no papilledema Neck/C-Spine: COMMON NORMALS: full ROM, no lymphadenopathy, supple, no meningeal signs, no JVD and Thyroid normal GENERAL: Yes normal visual inspection and Yes trachea midline THYROID: Thyroid normal CERVICAL SPINE: Yes cervical ROM normal Lymph: LYMPHATIC: no lymphadenopathy noted and no lymphedema noted Chest: COMMONS NORMALS: normal inspection of the chest and normal palpation of entire chest wall Resp: COMMON NORMALS: normal respiratory effort, No retractions, No use of accessory muscles and clear to auscultation bilaterally EFFORT & INSPECTION: Yes able to speak in complete sentences and Yes symmetric chest movement AUSCULTATION: clear to auscultation bilaterally Cardio: COMMON NORMALS: no JVD, regular rate and regular rhythm RATE: regular rate RHYTHM: regular rhythm GI: COMMON NORMALS: Normal to inspection, nondistended, normoactive bowel sounds present, Soft to palpation, non-tender, No hepatosplenomegaly present, no masses and no bruits INSPECTION: Yes normal to inspection AUSCULTATION: Yes normoactive bowel sounds PALPATION: Yes Soft to palpation and Yes No hepatosplenomegaly present PERCUSSION: normal to percussion RECTAL EXAM: deferred : COMMON NORMALS: Yes normal external appearance, Yes normal appearance of the vagina, Yes normal appearance of the cervix, Yes normal bimanual exam, Yes No adnexal tenderness and Yes no masses BIMANUAL EXAM - VAGINA & UTERUS: Yes normal bimanual exam Back/Pelvis: COMMON NORMALS: thoracic and lumbar spine normal to inspection, no thoracic nor lumbar tenderness and thoraco-lumbar ROM normal THORACIC SPINE/UPPER BACK: Yes normal to inspection LUMBAR SPINE/LOWER BACK: Yes normal to inspection Extremity: COMMON NORMALS: normal to inspection, full ROM and capillary refill normal GENERAL: Yes normal exam except as noted Neuro: COMMON NORMALS: patient oriented x3, CN's II-XII intact bilaterally, moves all extremities, no focal motor deficits, no sensory deficits noted, deep tendon reflexes 2+ bilaterally and gait normal SENSORIUM/ORIENTATION: Yes alert, Yes oriented to person, Yes oriented to place and Yes oriented to time MENINGEAL SIGNS: Yes no meningeal signs CRANIAL NERVES: Yes CN normal except as noted SPEECH: speech normal GAIT: Yes Normal gait present SENSORY EXAM: Yes extremities MOTOR EXAM: 5/5 motor strength present throughout Psych: COMMON NORMALS: mental status grossly normal, Normal thought process present, cooperative, normal affect, speech normal, activity/motor behavior normal, denies hallucinations, denies homicidal ideation and denies suicidal ideation APPEARANCE: Yes grossly normal and Yes well kempt ATTITUDE: Yes calm ACTIVITY/MOTOR BEHAVIOR: Yes appropriate eye contact SPEECH: Yes normal speech THOUGHT PROCESS: Normal thought process present THOUGHT CONTENT: Yes Normal thought content present ATTENTION/CONCENTRATION: Yes attention grossly intact MEMORY/COGNITION: Yes memory grossly intact INSIGHT: Good insight present (Psych) JUDGEMENT: Good judgement present (Psych) Skin: COMMON NORMALS: no rashes or lesions noted, no wounds, turgor normal, no jaundice, no petechiae and no mottling GENERAL SKIN EXAM: no rashes or lesions noted and turgor normal Course Vital Signs: Vital signs: Vital Signs Temperature 98.1 F 11/09/20 06:59 Pulse Rate 105 H 11/09/20 06:59 Respiratory Rate 18 11/09/20 06:59 Blood Pressure 114/80 11/09/20 06:59 Pulse Oximetry 96 11/09/20 06:59 MDM - Back Pain/Injury MDM Narrative: Medical decision making narrative: Pt is well appearing non toxic and in no acute distress. Pt ct scan reveals Patient: Dylan Mcmanus #: [id number]: [id number]#:[id number]/Sex: 49 / FADM Date: 11/09/20Loc: ERRoom/Bed:Attending Dr: Ordering Provider/Ordering MD: Karli Ruiz NP Date of Service: 11/09/20 Procedure(s): CT kidney stone 86921 Accession Number(s): [id number] Report Number: [id number] PROCEDURE INFORMATION: Exam: CT Abdomen And Pelvis Without Contrast Exam date and time: 11/09/2020 7:25 AM Age: 49 years old Clinical indication: Abdominal pain; Prior surgery; Additional info: Flank pain TECHNIQUE: Imaging protocol: Computed tomography of the abdomen and pelvis without contrast. Radiation optimization: All CT scans at this facility use at least one of these dose optimization techniques: automated exposure control; mA and/or kV adjustment per patient size (includes targeted exams where dose is matched to clinical indication); or iterative reconstruction. COMPARISON: CT kidney stone [id number] 01/26/2020 4:23 PM RADIATION DOSE METRICS: Total DLP (mGy-cm): 925.35 FINDINGS: Liver: No mass. Gallbladder and bile ducts: Gallbladder containing stones. No wall thickening. No pericholecystic fluid. Pancreas: No ductal dilation. Spleen: No splenomegaly. Adrenal glands: Normal. No mass. Kidneys and ureters: Punctate nonobstructing left renal stones. No hydronephrosis. Stomach and bowel: No obstruction. No mucosal thickening. Appendix: The appendix is not identified. Intraperitoneal space: No free air. No significant fluid collection. Vasculature: There are multiple pelvic phleboliths. Lymph nodes: No enlarged lymph nodes. Urinary bladder: Unremarkable as visualized. Reproductive: Unremarkable as visualized. Bones/joints: Unremarkable. No acute fracture. Soft tissues: Unremarkable. CT/CT kidney stone [id number] IMPRESSION: Cholelithiasis. Radiation Dose CTDIVOL = (mGy): DLP = 925.35 (mGy-cm) Bilirubinin and liver enzymes are normal. Urine is normal. I will have patient follow up with surgeon. Pt refused any pain meds while here in the ER and upon discharge patient states she has pain meds at home and doesnt want anything Lab Data: Labs: Lab Results 11/09/20 11/09/20 11/09/20 Range/Units 07:15 07:15 09:07 WBC 4.5 (4.0-10.0) 10^3/ uL RBC 5.36 H (4.1-5.3) 10^6/u L Hgb 15.1 (11.5-15.3) g/dL Hct 44.8 (37.0-47.0) % MCV 83.6 (81-99) fL MCH 28.2 (28.0-34.0) pg MCHC 33.7 (30.0-36.0) g/dL RDW 12.6 (12.1-15.1) % Plt Count 316 (130-400) 10^3/c mm MPV 8.6 (7.4-10.4) fL Neut % (Auto) 56.5 % Lymph % (Auto) 33.2 % Hern[place] % (Auto) 7.6 % Eos % (Auto) 1.8 % Baso % (Auto) 0.7 % Neut # (Auto) 2.52 (1.8-7.7) 10^3/u L Lymph # (Auto) 1.5 (0.8-4.8) 10^3/u L Hernando # (Auto) 0.3 (0.2-0.9) 10^3/u L Eos # (Auto) 0.1 (0.0-0.8) 10^3/u L Baso # (Auto) 0.0 (0.0-0.1) 10^3/u L Nucleated RBC % (a uto) 0 % Nucleated RBCs # 0.0 /100WBC Sodium (136-145) mmol/L Potassium (3.5-5.1) mmol/L Chloride (98-107) mmol/L Carbon Dioxide (22-29) mmol/L Anion Gap (5-19) BUN (6-20) mg/dL Creatinine (0.5-0.9) mg/dL GFR Calculation (90-130) mL/min Glucose (65-115) mg/dL Calculated Osmolal ity (285-295) mOsm/k g Calcium (8.5-10.5) mg/dL Total Bilirubin (0.15-1.2) mg/dL AST (0-32) U/L ALT (0-33) U/L Alkaline Phosphata se (35-105) IU/L Total Protein (6.6-8.7) g/dL Albumin (3.5-5.2) g/dL Globulin (1.3-4.6) g/dL HCG, Qual Negative (Negative) Urine Color Yellow (Yellow) Urine Appearance Clear (CLEAR) Urine pH 5 (5-7) Ur Specific Gravit y 1.020 (1.005-1.030) Urine Protein Neg (Negative) Urine Glucose (UA) Norm (Normal) Urine Ketones Negative (Negative) Urine Blood Neg (Negative) Urine Nitrate Negative (Negative) Urine Bilirubin Neg (Negative) Urine Urobilinogen Norm (Negative) mg/dL Ur Leukocyte Medina ase Negative (Negative) 11/09/20 Range/Units 09:07 WBC (4.0-10.0) 10^3/ uL RBC (4.1-5.3) 10^6/u L Hgb (11.5-15.3) g/dL Hct (37.0-47.0) % MCV (81-99) fL MCH (28.0-34.0) pg MCHC (30.0-36.0) g/dL RDW (12.1-15.1) % Plt Count (130-400) 10^3/c mm MPV (7.4-10.4) fL Neut % (Auto) % Lymph % (Auto) % Hernando % (Auto) % Eos % (Auto) % Baso % (Auto) % Neut # (Auto) (1.8-7.7) 10^3/u L Lymph # (Auto) (0.8-4.8) 10^3/u L Hernando # (Auto) (0.2-0.9) 10^3/u L Eos # (Auto) (0.0-0.8) 10^3/u L Baso # (Auto) (0.0-0.1) 10^3/u L Nucleated RBC % (a uto) % Nucleated RBCs # /100WBC Sodium 140 (136-145) mmol/L Potassium 4.5 (3.5-5.1) mmol/L Chloride 101 (98-107) mmol/L Carbon Dioxide 28 (22-29) mmol/L Anion Gap 15.5 (5-19) BUN 12 (6-20) mg/dL Creatinine 0.7 (0.5-0.9) mg/dL GFR Calculation 88.6 L (90-130) mL/min Glucose 94 (65-115) mg/dL Calculated Osmolal ity 290 (285-295) mOsm/k g Calcium 9.2 (8.5-10.5) mg/dL Total Bilirubin 0.4 (0.15-1.2) mg/dL AST 21 (0-32) U/L ALT 22 (0-33) U/L Alkaline Phosphata se 83 (35-105) IU/L Total Protein 7.3 (6.6-8.7) g/dL Albumin 4.3 (3.5-5.2) g/dL Globulin 3.0 (1.3-4.6) g/dL HCG, Qual (Negative) Urine Color (Yellow) Urine Appearance (CLEAR) Urine pH (5-7) Ur Specific Gravit y (1.005-1.030) Urine Protein (Negative) Urine Glucose (UA) (Normal) Urine Ketones (Negative) Urine Blood (Negative) Urine Nitrate (Negative) Urine Bilirubin (Negative) Urine Urobilinogen (Negative) mg/dL Ur Leukocyte Medina ase (Negative) Discharge Plan Discharge Patient Disposition: Home Clinical Impression: Gallstones Condition: Stable Prescriptions: No Action Chanell-D 24 Hour 180-240 mg tablet extended release 24 hr 1 tab PO QAM Qty: 30 RF: 0 [place] 7.5-325 mg tablet 1 tab PO Q8H PRN (Reason: pain) Qty: 12 RF: 0 hydrocodone-acetaminophen 5-325 mg tablet 1 tab PO Q6H PRN (Reason: pain) Qty: 14 RF: 0 ondansetron 4 mg tablet,disintegrating 4 mg PO Q6H PRN (Reason: nausea and vomiting) Qty: 14 RF: 0 Miralax 17 gram/dose powder 17 g PO DAILY PRN (Reason: constipation) Qty: 119 RF: 0 Discharge Orders: Discharge ED (Routine); Ordered 11/09/20 Ordered By: Karli Ruiz Discharge Diet: As Directed Discharge Activity: Increase activity as tolerated Patient Instructions: Cholecystitis (ED), Opioid Safety Activity Restrictions/Additional Instructions: Career Transition Specialist will call you for surgery referral Please take pain meds as previously prescribed Return to ER if You have severe pain in your abdomen. You have chest pain or trouble breathing. You urinate less than usual. Coding Level of Care Code ED Data Control Assistant for Johnathan Fwd Exam Comprehensive
[2020-11-09 07:32] LABS: Add Urine Microscopic? NO; Charge for UA Resulting for Rev
[2020-11-09 07:40] LABS: Bilirubin Urine Neg (Negative); Blood Urine Neg (Negative); Glucose Urine UA Norm (Normal); Ketones Urine Negative (Negative); Leukocyte Esterase Urine Negative (Negative); Nitrate Urine Negative (Negative); Protein Urine Neg (Negative); Urine Appearance Clear (CLEAR); Urine Color Yellow (Yellow); Urobilinogen Urine Norm (Negative); pH Urine 5 (5-7)
[2020-11-09 07:41] LABS: HCG Qualitative Urine. Negative (Negative)
[2020-11-09 09:22] LABS: Basophils % 0.7 %; Eosinophils # 0.1 10^3/uL (0.0-0.8); Eosinophils % 1.8 %; Hematocrit 44.8 % (37.0-47.0); Hemoglobin 15.1 g/dL (11.5-15.3); Lymphocytes # 1.5 10^3/uL (0.8-4.8); Lymphocytes % 33.2 %; Mean Corpuscular HGB Conc 33.7 g/dL (30.0-36.0); Mean Corpuscular Hemoglobin 28.2 pg (28.0-34.0); Mean Corpuscular Volume 83.6 fL (81-99); Mean Platelet Volume 8.6 fL (7.4-10.4); Monocytes # 0.3 10^3/uL (0.2-0.9); Monocytes % 7.6 %; Neutrophils # 2.52 10^3/uL (1.8-7.7); Neutrophils % 56.5 %; Nucleated Red Blood Cells % 0 %; Platelet Count 316 10^3/cmm (130-400); Red Blood Count 5.36 10^6/uL (4.1-5.3); Red Cell Distribution Width 12.6 % (12.1-15.1); White Blood Count 4.5 10^3/uL (4.0-10.0)
[2020-11-09 09:36] LABS: Alanine Aminotransferase 22 U/L (0-33); Albumin Level 4.3 g/dL (3.5-5.2); Alkaline Phosphatase 83 IU/L (35-105); Anion Gap 15.5 (5-19); Aspartate Amino Transferase 21 U/L (0-32); Blood Urea Nitrogen 12 mg/dL (6-20); Calcium 9.2 mg/dL (8.5-10.5); Carbon Dioxide 28 mmol/L (22-29); Chloride 101 mmol/L (98-107); Glomerular Filtration Rate 88.6 mL/min (90-130); Glucose 94 mg/dL (65-115); Osmolality Calculated 290 mOsm/kg (285-295); Potassium 4.5 mmol/L (3.5-5.1); Sodium 140 mmol/L (136-145); Total Bilirubin 0.4 mg/dL (0.15-1.2); Total Protein 7.3 g/dL (6.6-8.7)
[2020-11-09 10:43] VITALS: BP 118/78; PULSE 91; RESP 18; O2SAT 96
--- NOTE | 2020-11-09 10:43 | DCPLANNER ---
manager mobility had message to schedule a follow up appointment for patient with general surgery for gall stones. manager mobility emailed patients information to both Alysia and Renetta at [facility] General Surgery. Patients information will be printed and reviewed. Clinic will call patient with appointment information.
--- NOTE | 2020-11-13 14:17 | DCPLANNER ---
Patient has a follow up appointment scheduled for , November 26, 2020 at 1:[address] Ovalle. Clinic will call patient with appointment information.
--- NOTE | 2020-12-18 14:03 | DCPLANNER ---
Patient had a follow up appointment scheduled for 11.26.20 with general surgery - patient did not attend appointment.
== END 2020-11-09 10:45 | disposition home or self-care (01) ==
PROVIDERS: Emergency Provider Registered Nurse
DX: K80.80 Other cholelithiasis without obstruction (principal)
CPT/HCPCS: 74176; 80053; 81003; 81025; 85025; 99283

== ENCOUNTER → 2021-05-21 12:11 | Outpatient (BNVA) | payer SELFPAY | PROVIDERS: Visit Provider Registered Nurse | DX: E53.8 Deficiency of other specified B group vitamins (principal); R53.83 Other fatigue; E55.9 Vitamin D deficiency, unspecified | CPT/HCPCS: 82306; 82607; 84443 ==

== ENCOUNTER 2021-07-03 21:59 | Emergency (ER) | payer SELFPAY ==
[2021-07-03 22:12] VITALS: BP 126/83; PULSE 81; RESP 20; TEMP 36.6; O2SAT 98; BMI 31.1
--- NOTE | 2021-07-03 23:35 | W.ED.ABDPA2 ---
Documented by User: PACHECO Santos 07/04/21 01:21 HPI - Abdominal Pain General: Chief Complaint: Abdominal Pain Stated Complaint: ABD Possible Gall Blatter Time Seen by Provider: 07/03/21 23:35 History of Present Illness: 50-year-old female comes in today with right lower quadrant abdominal pain. Patient also reports some flank pain that radiates into her hip and down the back of her right leg. Patient appears in moderate pain. Patient appears mildly unwell but nontoxic. Patient reports a history of kidney stones and gallbladder disease. Patient has had her appendix removed. Patient has been doing some painting around the house also. Patient reports no other chronic medical problems. Related Data: Date of Last Menstrual Period: 04/11/19 Review of Systems General: Reports: 10 or more systems reviewed and unremarkable except in HPI and below GI: Reports: abdominal pain : Reports: flank pain Musc: Reports: back pain [facility] ED PFSH: Medical History (Updated 07/04/21 @ 01:18 by PACHECO Santos) Bilateral renal stones Bilateral ureteral stones discovered on CT scan during work-up for right flank pain found to be secondary to large distal obstructing ureteral stone. Removed with endoscopy June 2019 Obesity Retained ureteral stent Surgical History Hx of removal of ovary Social History Smoking and tobacco status: never smoked Alcohol intake: never Marital status: Current occupational status: employed History of recent travel: No Female Reproductive History: Date of last menstrual period: 04/11/19 Physical Exam Const: COMMON NORMALS: alert HENMT: COMMON NORMALS: normocephalic HEAD & SCALP: normocephalic MOUTH: Normal oral and palatal mucosa present THROAT: posterior oropharynx normal Neck/C-Spine: COMMON NORMALS: full ROM Resp: COMMON NORMALS: normal respiratory effort and clear to auscultation bilaterally AUSCULTATION: clear to auscultation bilaterally Cardio: COMMON NORMALS: regular rate and regular rhythm RATE: regular rate RHYTHM: regular rhythm GI: COMMON NORMALS: Soft to palpation PALPATION: Yes Soft to palpation, Yes Tenderness to palpation present (GI) Details: RLQ, No Guarding due to palpation present (GI) and No Rebound tenderness present : COMMON NORMALS: Yes no CVA tenderness BLADDER/KIDNEY EXAM: Yes no CVA tenderness Back/Pelvis: COMMON NORMALS: no CVA tenderness LUMBAR SPINE/LOWER BACK: Yes paraspinal muscle tenderness Lumbar paraspinal muscle tenderness: right Extremity: COMMON NORMALS: full ROM Neuro: SENSORIUM/ORIENTATION: Yes alert Psych: COMMON NORMALS: cooperative Skin: COMMON NORMALS: no rashes or lesions noted GENERAL SKIN EXAM: no rashes or lesions noted Course Vital Signs: Vital signs: Vital Signs Temperature 97.8 F 07/03/21 22:12 Pulse Rate 81 07/03/21 22:12 Respiratory Rate 18 07/04/21 00:07 Blood Pressure 126/83 07/03/21 22:12 Pulse Oximetry 100 07/04/21 00:07 MDM - Abdominal Pain Medical Decision Making Patient comes in today with complaints of right side flank pain which she thinks may be related to either her kidney or gallbladder. Patient has a history of renal calculi and gallstones. Patient states that the pain is different though this time and that it goes to her buttocks and down the back of her right leg. On exam abdomen soft and nontender. Patient has pain in the right lower back with pain on elevation of the right lower leg. Differential diagnosis includes sciatica, cholecystitis, renal calculi. Laboratory values were unremarkable. Urinalysis was clear. CT of the abdomen pelvis noted a large amount of cholelithiasis [place] signs of infection. Patient's physical exam points towards a lumbar radiculopathy/sciatica. Patient does have a lot of gallstones and would like to be referred to a surgeon regarding surgical intervention. Case management was requested for surgical follow-up. Patient was recommended to use acetaminophen and ibuprofen for back pain and maintain normal activity as much as possible. Patient reported understanding agreed to plan. Lab Data : 07/04/21 00:04 07/04/21 00:04 Labs/Radiology: Radiology Impressions Abdomen/Pelvis CT 07/03/21 23:44 IMPRESSION: 1. No acute finding. 2. Cholelithiasis not significantly changed from 11/09/2020. Laboratory Results WBC 5.2 10^3/uL (4.0-10.0) 07/04/21 00:04 RBC 4.70 10^6/uL (4.1-5.3) 07/04/21 00:04 Hgb 13.4 g/dL (11.5-15.3) 07/04/21 00:04 Hct 40.4 % (37.0-47.0) 07/04/21 00:04 MCV 86.0 fl (81-99) 07/04/21 00:04 MCH 28.5 pg (28.0-34.0) 07/04/21 00:04 MCHC 33.2 g/dL (30.0-36.0) 07/04/21 00:04 RDW 12.8 % (12.1-15.1) 07/04/21 00:04 Plt Count 280 10^3/cmm (130-400) 07/04/21 00:04 MPV 8.6 fL (7.4-10.4) 07/04/21 00:04 Neut % (Auto) 39.9 % 07/04/21 00:04 Lymph % (Auto) 46.9 % 07/04/21 00:04 [place] % (Auto) 7.8 % 07/04/21 00:04 Eos % (Auto) 4.2 % 07/04/21 00:04 Baso % (Auto) 1.0 % 07/04/21 00:04 Neut # (Auto) 2.09 10^3/uL (1.8-7.7) 07/04/21 00:04 Lymph # (Auto) 2.5 10^3/uL (0.8-4.8) 07/04/21 00:04 [place] # (Auto) 0.4 10^3/uL (0.2-0.9) 07/04/21 00:04 Eos # (Auto) 0.2 10^3/uL (0.0-0.8) 07/04/21 00:04 Baso # (Auto) 0.1 10^3/uL (0.0-0.1) 07/04/21 00:04 Nucleated RBC % (auto) 0 % 07/04/21 00:04 Nucleated RBCs # 0.0 /100WBC 07/04/21 00:04 Sodium 140 mmol/L (136-145) 07/04/21 00:04 Potassium 4.1 mmol/L (3.5-5.1) 07/04/21 00:04 Chloride 102 mmol/L (98-107) 07/04/21 00:04 Carbon Dioxide 28 mmol/L (22-29) 07/04/21 00:04 Anion Gap 14.1 (5-19) 07/04/21 00:04 BUN 18 mg/dL (6-20) 07/04/21 00:04 Creatinine 0.7 mg/dL (0.5-0.9) 07/04/21 00:04 GFR Calculation 88.2 mL/min (90-130) L 07/04/21 00:04 Glucose 94 mg/dL (65-115) 07/04/21 00:04 Calculated Osmolality 292 mOsm/kg (285-295) 07/04/21 00:04 Calcium 10.0 mg/dL (8.5-10.5) 07/04/21 00:04 Total Bilirubin 0.2 mg/dL (0.15-1.2) 07/04/21 00:04 AST 26 U/L (0-32) 07/04/21 00:04 ALT 20 U/L (0-33) 07/04/21 00:04 Alkaline Phosphatase 97 IU/L (35-105) 07/04/21 00:04 Total Protein 7.4 g/dL (6.6-8.7) 07/04/21 00:04 Albumin 4.4 g/dL (3.5-5.2) 07/04/21 00:04 Globulin 3.0 g/dL (1.3-4.6) 07/04/21 00:04 Lipase 31 U/L (13-60) 07/04/21 00:04 HCG, Qual Negative (Negative) 07/04/21 00:04 Urine Color Yellow (Yellow) 07/04/21 00:04 Urine Appearance Sl hazy (CLEAR) 07/04/21 00:04 Urine pH 7 (5-7) 07/04/21 00:04 Ur Specific Anthony 1.015 (1.005-1.030) 07/04/21 00:04 Urine Protein Neg (Negative) 07/04/21 00:04 Urine Glucose (UA) Norm (Normal) 07/04/21 00:04 Urine Ketones Negative (Negative) 07/04/21 00:04 Urine Blood Neg (Negative) 07/04/21 00:04 Urine Nitrate Negative (Negative) 07/04/21 00:04 Urine Bilirubin Neg (Negative) 07/04/21 00:04 Urine Urobilinogen Norm mg/dL (Negative) 07/04/21 00:04 Ur Leukocyte Esterase 1+ (Negative) H 07/04/21 00:04 Urine RBC 0-4 /hpf (0-2) H 07/04/21 00:04 Urine WBC 0-4 /hpf (0-5) H 07/04/21 00:04 Ur Squamous Epith Cells 0-4 /hpf (0-5) H 07/04/21 00:04 Amorphous Sediment 1+ /hpf 07/04/21 00:04 Urine Bacteria Trace /hpf (NONE) 07/04/21 00:04 Discharge Plan Discharge Patient Disposition: Home Clinical Impression: Sciatica of right side Cholelithiasis Qualifiers: Cholelithiasis location: gallbladder Cholecystitis presence: without cholecystitis Biliary obstruction: without biliary obstruction Qualified Code(s): K80.20 - Calculus of gallbladder without cholecystitis without obstruction Condition: Stable Prescriptions: No Action ergocalciferol (vitamin D2) 1,250 mcg (50,000 unit) capsule 1,250 mcg PO .once a week 90 Days Qty: 12 0RF Discharge Orders: Discharge ED (Routine); Ordered 07/04/21 Ordered By: Jesús Lyn Discharge Diet: Advance as tolerated Discharge Activity: Increase activity as tolerated Patient Instructions: Lumbar Radiculopathy (ED), Opioid Safety Activity Restrictions/Additional Instructions: Home and rest. Use acetaminophen or ibuprofen for pain. Drink plenty of water. Activity as tolerated. Follow-up with primary care regarding back pain. Follow-up with surgeon regarding gallstones. Return to emergency department for high fever greater than 100.4, persistent nausea vomiting, or new concerns. Coding Level of Care Code ED Psychiatric Clinical Nurse Specialist for Chg Fwd Exam Comprehensive Documented by User: Dale Dillon DO 07/04/21 01:40 HPI - Abdominal Pain General: Chief Complaint: Abdominal Pain Stated Complaint: ABD Possible Gall Blatter Time Seen by Provider: 07/03/21 23:35 [facility] ED [facility]: Medical History (Updated 07/04/21 @ 01:18 by PACHECO Santos) Bilateral renal stones Bilateral ureteral stones discovered on CT scan during work-up for right flank pain found to be secondary to large distal obstructing ureteral stone. Removed with endoscopy June 2019 Obesity Retained ureteral stent Surgical History Hx of removal of ovary Social History Smoking and tobacco status: never smoked Alcohol intake: never Marital status: Current occupational status: employed History of recent travel: No Course Vital Signs: Vital signs: Vital Signs Temperature 97.8 F 07/03/21 22:12 Pulse Rate 81 07/03/21 22:12 Respiratory Rate 18 07/04/21 00:07 Blood Pressure 126/83 07/03/21 22:12 Pulse Oximetry 100 07/04/21 00:07 MDM - Abdominal Pain Medical Decision Making Patient comes in today with complaints of right side flank pain which she thinks may be related to either her kidney or gallbladder. Patient has a history of renal calculi and gallstones. Patient states that the pain is different though this time and that it goes to her buttocks and down the back of her right leg. On exam abdomen soft and nontender. Patient has pain in the right lower back with pain on elevation of the right lower leg. Differential diagnosis includes sciatica, cholecystitis, renal calculi. Laboratory values were unremarkable. Urinalysis was clear. CT of the abdomen pelvis noted a large amount of cholelithiasis [place] signs of infection. Patient's physical exam points towards a lumbar radiculopathy/sciatica. Patient does have a lot of gallstones and would like to be referred to a surgeon regarding surgical intervention. Case management was requested for surgical follow-up. Patient was recommended to use acetaminophen and ibuprofen for back pain and maintain normal activity as much as possible. Patient reported understanding agreed to plan. This patient was originally seen by PACHECO Huynh.? I agree with his history, evaluation, and treatment. Lab Data : 07/04/21 00:04 07/04/21 00:04 Labs/Radiology: Radiology Impressions Abdomen/Pelvis CT 07/03/21 23:44 IMPRESSION: 1. No acute finding. 2. Cholelithiasis not significantly changed from 11/09/2020. Laboratory Results WBC 5.2 10^3/uL (4.0-10.0) 07/04/21 00:04 RBC 4.70 10^6/uL (4.1-5.3) 07/04/21 00:04 Hgb 13.4 g/dL (11.5-15.3) 07/04/21 00:04 Hct 40.4 % (37.0-47.0) 07/04/21 00:04 MCV 86.0 fl (81-99) 07/04/21 00:04 MCH 28.5 pg (28.0-34.0) 07/04/21 00:04 MCHC 33.2 g/dL (30.0-36.0) 07/04/21 00:04 RDW 12.8 % (12.1-15.1) 07/04/21 00:04 Plt Count 280 10^3/cmm (130-400) 07/04/21 00:04 MPV 8.6 fL (7.4-10.4) 07/04/21 00:04 Neut % (Auto) 39.9 % 07/04/21 00:04 Lymph % (Auto) 46.9 % 07/04/21 00:04 [place] % (Auto) 7.8 % 07/04/21 00:04 Eos % (Auto) 4.2 % 07/04/21 00:04 Baso % (Auto) 1.0 % 07/04/21 00:04 Neut # (Auto) 2.09 10^3/uL (1.8-7.7) 07/04/21 00:04 Lymph # (Auto) 2.5 10^3/uL (0.8-4.8) 07/04/21 00:04 [place] # (Auto) 0.4 10^3/uL (0.2-0.9) 07/04/21 00:04 Eos # (Auto) 0.2 10^3/uL (0.0-0.8) 07/04/21 00:04 Baso # (Auto) 0.1 10^3/uL (0.0-0.1) 07/04/21 00:04 Nucleated RBC % (auto) 0 % 07/04/21 00:04 Nucleated RBCs # 0.0 /100WBC 07/04/21 00:04 Sodium 140 mmol/L (136-145) 07/04/21 00:04 Potassium 4.1 mmol/L (3.5-5.1) 07/04/21 00:04 Chloride 102 mmol/L (98-107) 07/04/21 00:04 Carbon Dioxide 28 mmol/L (22-29) 07/04/21 00:04 Anion Gap 14.1 (5-19) 07/04/21 00:04 BUN 18 mg/dL (6-20) 07/04/21 00:04 Creatinine 0.7 mg/dL (0.5-0.9) 07/04/21 00:04 GFR Calculation 88.2 mL/min (90-130) L 07/04/21 00:04 Glucose 94 mg/dL (65-115) 07/04/21 00:04 Calculated Osmolality 292 mOsm/kg (285-295) 07/04/21 00:04 Calcium 10.0 mg/dL (8.5-10.5) 07/04/21 00:04 Total Bilirubin 0.2 mg/dL (0.15-1.2) 07/04/21 00:04 AST 26 U/L (0-32) 07/04/21 00:04 ALT 20 U/L (0-33) 07/04/21 00:04 Alkaline Phosphatase 97 IU/L (35-105) 07/04/21 00:04 Total Protein 7.4 g/dL (6.6-8.7) 07/04/21 00:04 Albumin 4.4 g/dL (3.5-5.2) 07/04/21 00:04 Globulin 3.0 g/dL (1.3-4.6) 07/04/21 00:04 Lipase 31 U/L (13-60) 07/04/21 00:04 HCG, Qual Negative (Negative) 07/04/21 00:04 Urine Color Yellow (Yellow) 07/04/21 00:04 Urine Appearance Sl hazy (CLEAR) 07/04/21 00:04 Urine pH 7 (5-7) 07/04/21 00:04 Ur Specific [place] 1.015 (1.005-1.030) 07/04/21 00:04 Urine Protein Neg (Negative) 07/04/21 00:04 Urine Glucose (UA) Norm (Normal) 07/04/21 00:04 Urine Ketones Negative (Negative) 07/04/21 00:04 Urine Blood Neg (Negative) 07/04/21 00:04 Urine Nitrate Negative (Negative) 07/04/21 00:04 Urine Bilirubin Neg (Negative) 07/04/21 00:04 Urine Urobilinogen Norm mg/dL (Negative) 07/04/21 00:04 Ur Leukocyte Esterase 1+ (Negative) H 07/04/21 00:04 Urine RBC 0-4 /hpf (0-2) H 07/04/21 00:04 Urine WBC 0-4 /hpf (0-5) H 07/04/21 00:04 Ur Squamous Epith Cells 0-4 /hpf (0-5) H 07/04/21 00:04 Amorphous Sediment 1+ /hpf 07/04/21 00:04 Urine Bacteria Trace /hpf (NONE) 07/04/21 00:04 Discharge Plan Discharge Patient Disposition: Home Clinical Impression: Sciatica of right side Cholelithiasis Qualifiers: Cholelithiasis location: gallbladder Cholecystitis presence: without cholecystitis Biliary obstruction: without biliary obstruction Qualified Code(s): K80.20 - Calculus of gallbladder without cholecystitis without obstruction Condition: Stable Prescriptions: No Action ergocalciferol (vitamin D2) 1,250 mcg (50,000 unit) capsule 1,250 mcg PO .once a week 90 Days Qty: 12 0RF Discharge Orders: Discharge ED (Routine); Ordered 07/04/21 Ordered By: Jesús Lyn Discharge Diet: Advance as tolerated Discharge Activity: Increase activity as tolerated Patient Instructions: Lumbar Radiculopathy (ED), Opioid Safety Activity Restrictions/Additional Instructions: Home and rest. Use acetaminophen or ibuprofen for pain. Drink plenty of water. Activity as tolerated. Follow-up with primary care regarding back pain. Follow-up with surgeon regarding gallstones. Return to emergency department for high fever greater than 100.4, persistent nausea vomiting, or new concerns. Coding Level of Care Code ED Psychiatric Clinical Nurse Specialist for Johnathan Fwd Exam Comprehensive
--- NOTE | 2021-07-03 23:44 | CTR_ITS ---
PROCEDURE INFORMATION: Exam: CT Abdomen And Pelvis With Contrast Exam date and time: 07/03/2021 11:44 PM Age: 50 years old Clinical indication: Abdominal pain; Localized; Right lower quadrant (rlq); Prior surgery; Surgery date: 6+ months; Surgery type: Appy; Additional info: Rlq abd pain TECHNIQUE: Imaging protocol: Computed tomography of the abdomen and pelvis with contrast. Radiation optimization: All CT scans at this facility use at least one of these dose optimization techniques: automated exposure control; mA and/or kV adjustment per patient size (includes targeted exams where dose is matched to clinical indication); or iterative reconstruction. Contrast material: OMNI 300; Contrast volume: 90 ml; Contrast route: INTRAVENOUS (IV); COMPARISON: CT kidney stone [id number] 11/09/2020 7:34 AM RADIATION DOSE METRICS: Total DLP (mGy-cm): 1422.78 FINDINGS: Liver: There is no focal abnormality within the liver. Gallbladder and bile ducts: Multiple calcified gallstones are present. There is no gallbladder wall thickening or pericholecystic fluid. There is no focal abnormality within the liver. Pancreas: The pancreas is normal. Spleen: The spleen is normal. Adrenal glands: The adrenal glands are normal. Kidneys and ureters: The kidneys are normal. There is no evidence of hydronephrosis. There is no evidence of renal or ureteral calcifications. Stomach and bowel: There is no evidence of colitis/diverticulitis. Appendix: There has been an appendectomy. Intraperitoneal space: There is no evidence of free intraperitoneal fluid. Vasculature: There is no evidence of an abdominal aortic aneurysm. Lymph nodes: There is no evidence of lymphadenopathy. Urinary bladder: Unremarkable as visualized. Reproductive: Unremarkable as visualized. Bones/joints: Unremarkable. No acute fracture. Soft tissues: Unremarkable. CT/CT abdomen pelvis w con* [id number] IMPRESSION: 1. No acute finding. 2. Cholelithiasis not significantly changed from 11/09/2020.
[2021-07-04] MEDS: ondansetron 2 mg/ML SDV 2 mL 4 MG IVP (00:06)
[2021-07-04] MEDS: sodium chloride 0.9% 1,000 ML 999 ML IV (00:06)
[2021-07-04 00:07] VITALS: RESP 18; O2SAT 100
[2021-07-04] MEDS: morphine 4 mg/mL SDV 1 mL IVP (00:07)
[2021-07-04 00:18] LABS: Basophils # 0.1 10^3/uL (0.0-0.1); Eosinophils # 0.2 10^3/uL (0.0-0.8); Eosinophils % 4.2 %; Hematocrit 40.4 % (37.0-47.0); Hemoglobin 13.4 g/dL (11.5-15.3); Lymphocytes # 2.5 10^3/uL (0.8-4.8); Lymphocytes % 46.9 %; Mean Corpuscular HGB Conc 33.2 g/dL (30.0-36.0); Mean Corpuscular Hemoglobin 28.5 pg (28.0-34.0); Mean Platelet Volume 8.6 fL (7.4-10.4); Monocytes # 0.4 10^3/uL (0.2-0.9); Monocytes % 7.8 %; Neutrophils # 2.09 10^3/uL (1.8-7.7); Neutrophils % 39.9 %; Nucleated Red Blood Cells % 0 %; Platelet Count 280 10^3/cmm (130-400); Red Cell Distribution Width 12.8 % (12.1-15.1); White Blood Count 5.2 10^3/uL (4.0-10.0)
[2021-07-04 00:20] LABS: Bilirubin Urine Neg (Negative); Blood Urine Neg (Negative); Glucose Urine UA Norm (Normal); Ketones Urine Negative (Negative); Nitrate Urine Negative (Negative); Protein Urine Neg (Negative); Specific Gravity, Urine 1.015 (1.005-1.030); Urine Appearance SL Hazy (CLEAR); Urine Color Yellow (Yellow); Urobilinogen Urine Norm (Negative); pH Urine 7 (5-7)
[2021-07-04 00:21] LABS: Add Urine Microscopic? YES; Leukocyte Esterase Urine 1+ (Negative)
[2021-07-04] MEDS: iohexol 300 mg/mL 100 mL Btl IV (00:23)
[2021-07-04 00:31] LABS: Add Urine Culture? No; Amorphous Sediment Urine 1+ /hpf; Bacteria Urine TRACE /hpf; RBC Urine 0-4 /hpf (0-2); Squamous Epithelial Cell Urine 0-4 /hpf (0-5); WBC Urine 0-4 /hpf (0-5)
[2021-07-04 00:34] LABS: Alanine Aminotransferase 20 U/L (0-33); Albumin Level 4.4 g/dL (3.5-5.2); Alkaline Phosphatase 97 IU/L (35-105); Anion Gap 14.1 (5-19); Aspartate Amino Transferase 26 U/L (0-32); Blood Urea Nitrogen 18 mg/dL (6-20); Carbon Dioxide 28 mmol/L (22-29); Chloride 102 mmol/L (98-107); Glomerular Filtration Rate 88.2 mL/min (90-130); Glucose 94 mg/dL (65-115); Lipase 31 U/L (13-60); Osmolality Calculated 292 mOsm/kg (285-295); Potassium 4.1 mmol/L (3.5-5.1); Sodium 140 mmol/L (136-145); Total Bilirubin 0.2 mg/dL (0.15-1.2); Total Protein 7.4 g/dL (6.6-8.7)
[2021-07-04 00:36] LABS: HCG, Serum Qual Negative (Negative)
[2021-07-04 01:41] VITALS: BP 108/68; PULSE 81; RESP 16; O2SAT 98
--- NOTE | 2021-07-06 05:36 | DCPLANNER ---
Addendum entered by Saige Parada 07/13/21 06:33: manager of internal received notification from the general surgery clinic, that when clinic called patient to schedule a follow up appointment that patient declined appointment. Original Note: manager of internal had message to schedule a follow up appointment for patient with general surgery. manager of internal emailed patients information to Mckenna Hatfield at [facility] General Surgery. Patients information will be printed and reviewed. Clinic will call patient with appointment information.
== END 2021-07-04 01:42 | disposition home or self-care (01) ==
PROVIDERS: Emergency Provider Nurse Practitioner Family
DX: K80.20 Calculus of gallbladder without cholecystitis without obstruction (principal); M54.31 Sciatica, right side
CPT/HCPCS: 74177; 80053; 81001; 83690; 84703; 85025; 96361; 96374; 96375; 99284; J2270; J2405; J7030; Q9967

== ENCOUNTER → 2021-10-21 16:06 | Outpatient (BNVA) | payer SELFPAY | PROVIDERS: Visit Provider Nurse Practitioner Family | DX: R30.0 Dysuria (principal); N39.0 Urinary tract infection, site not specified; J02.9 Acute pharyngitis, unspecified | CPT/HCPCS: 81000 ==